=== PATIENT | female | born 1945 | race Caucasian/White ===

== ENCOUNTER → 2019-09-30 | Outpatient (CLI) | payer MEDICARE, OTHER ==
--- NOTE | 2019-09-30 15:47 | Diagnostic Imaging Report ---
PROCEDURE: CT abdomen and pelvis without contrast. TECHNIQUE: Multiple contiguous axial images were obtained through the abdomen and pelvis without the use of intravenous contrast. Auto Exposure Controls were utilized during the CT exam to meet ALARA standards for radiation dose reduction. INDICATION: Rectal problems and diarrhea. COMPARISON: No prior studies are available for comparison. FINDINGS: Lung bases are clear. Tiny low density in the dome of the right lobe of the liver is noted, too small to characterize. No other liver lesions are seen. The gallbladder is unremarkable. There is no biliary ductal dilatation. The pancreas and spleen are unremarkable. No adrenal mass is identified. No definite renal calculi or hydronephrosis are seen. Aorta is nonaneurysmal. A large amount of stool throughout the colon is noted. Small bowel loops are normal in caliber. There is some generalized circumferential wall thickening of the rectum. There is no free fluid or fluid collection. No abdominal or pelvic lymphadenopathy is seen. IMPRESSION: 1. Circumferential thickening of the rectum. Underlying neoplasm cannot be entirely excluded. Correlation with endoscopy is recommended. There is moderate stool throughout the remainder of the colon. Dictated by: Dictated on workstation # [id number]
== END ==
LOC: RAD 12:40
PROVIDERS: ATTEND Family Medicine
DX: K62.89 Other specified diseases of anus and rectum (principal); K62.5 Hemorrhage of anus and rectum
CPT/HCPCS: 74176

== ENCOUNTER 2020-02-07 13:21 | Outpatient (RCR) | payer MEDICARE ==
[2019-11-29 08:39] LABS: BASOPHILS # (AUTO) 0.1 10^3/uL (0.0-0.1); BASOPHILS % (AUTO) 1 % (0-10); EOSINOPHILS # (AUTO) 0.1 10^3/uL (0.0-0.3); EOSINOPHILS % (AUTO) 2 % (0-10); HEMATOCRIT 33 % (35-52); HEMOGLOBIN 10.7 G/DL (11.5-16.0); LYMPHOCYTES # (AUTO) 1.1 X 10^3 (1.0-4.0); LYMPHOCYTES % (AUTO) 21 % (12-44); MEAN CORPUSCULAR HEMOGLOBIN 28 PG (25-34); MEAN CORPUSCULAR HGB CONC 32 G/DL (32-36); MEAN CORPUSCULAR VOLUME 86 FL (80-99); MEAN PLATELET VOLUME 8.6 FL (7.4-10.4); MONOCYTES # (AUTO) 0.8 X 10^3 (0.0-1.0); MONOCYTES % (AUTO) 16 % (0-12); NEUTROPHILS # (AUTO) 3.2 X 10^3 (1.8-7.8); NEUTROPHILS % (AUTO) 61 % (42-75); PLATELET COUNT 284 10^3/uL (130-400); RED CELL DISTRIBUTION WIDTH 14.7 % (10.0-14.5); WHITE BLOOD COUNT 5.3 10^3/uL (4.3-11.0)
[2019-11-29 08:57] LABS: BUN/CREATININE RATIO 14; CALCIUM 8.9 MG/DL (8.5-10.1); CARBON DIOXIDE 24 MMOL/L (21-32); CHLORIDE 106 MMOL/L (98-107); CREATININE SERUM 0.77 MG/DL (0.60-1.30); GFR ESTIMATED > 60; GLUCOSE 98 MG/DL (70-105); POTASSIUM 3.9 MMOL/L (3.6-5.0); SODIUM 140 MMOL/L (135-145)
[2019-12-13 09:41] LABS: BASOPHILS # (AUTO) 0.1 10^3/uL (0.0-0.1); BASOPHILS % (AUTO) 1 % (0-10); EOSINOPHILS # (AUTO) 0.1 10^3/uL (0.0-0.3); EOSINOPHILS % (AUTO) 3 % (0-10); HEMATOCRIT 33 % (35-52); HEMOGLOBIN 10.7 G/DL (11.5-16.0); LYMPHOCYTES # (AUTO) 1.4 X 10^3 (1.0-4.0); LYMPHOCYTES % (AUTO) 29 % (12-44); MEAN CORPUSCULAR HEMOGLOBIN 28 PG (25-34); MEAN CORPUSCULAR HGB CONC 33 G/DL (32-36); MEAN CORPUSCULAR VOLUME 86 FL (80-99); MEAN PLATELET VOLUME 8.5 FL (7.4-10.4); MONOCYTES # (AUTO) 0.8 X 10^3 (0.0-1.0); MONOCYTES % (AUTO) 17 % (0-12); NEUTROPHILS # (AUTO) 2.5 X 10^3 (1.8-7.8); NEUTROPHILS % (AUTO) 51 % (42-75); PLATELET COUNT 219 10^3/uL (130-400); RED CELL DISTRIBUTION WIDTH 15.9 % (10.0-14.5)
[2019-12-13 09:56] LABS: ALANINE AMINOTRANSFERASE 52 U/L (0-55); ALBUMIN 3.7 GM/DL (3.2-4.5); ALKALINE PHOSPHATASE 113 U/L (40-136); BILIRUBIN,TOTAL 0.4 MG/DL (0.1-1.0); BUN/CREATININE RATIO 17; CALCIUM 9.1 MG/DL (8.5-10.1); CARBON DIOXIDE 26 MMOL/L (21-32); CHLORIDE 108 MMOL/L (98-107); CREATININE SERUM 0.77 MG/DL (0.60-1.30); GFR ESTIMATED > 60; GLUCOSE 77 MG/DL (70-105); MAGNESIUM 2.2 MG/DL (1.6-2.4); POTASSIUM 3.9 MMOL/L (3.6-5.0); SODIUM 141 MMOL/L (135-145); TOTAL PROTEIN 6.5 GM/DL (6.4-8.2)
[2019-12-27 13:29] LABS: BASOPHILS % (AUTO) 1 % (0-10); EOSINOPHILS # (AUTO) 0.1 10^3/uL (0.0-0.3); EOSINOPHILS % (AUTO) 3 % (0-10); HEMATOCRIT 32 % (35-52); HEMOGLOBIN 10.6 G/DL (11.5-16.0); LYMPHOCYTES # (AUTO) 1.5 X 10^3 (1.0-4.0); LYMPHOCYTES % (AUTO) 30 % (12-44); MEAN CORPUSCULAR HEMOGLOBIN 28 PG (25-34); MEAN CORPUSCULAR HGB CONC 33 G/DL (32-36); MEAN CORPUSCULAR VOLUME 86 FL (80-99); MEAN PLATELET VOLUME 8.6 FL (7.4-10.4); MONOCYTES # (AUTO) 0.8 X 10^3 (0.0-1.0); MONOCYTES % (AUTO) 16 % (0-12); NEUTROPHILS # (AUTO) 2.6 X 10^3 (1.8-7.8); NEUTROPHILS % (AUTO) 50 % (42-75); PLATELET COUNT 187 10^3/uL (130-400); RED CELL DISTRIBUTION WIDTH 16.6 % (10.0-14.5); WHITE BLOOD COUNT 5.1 10^3/uL (4.3-11.0)
[2019-12-27 13:52] LABS: ALANINE AMINOTRANSFERASE 68 U/L (0-55); ALBUMIN 3.8 GM/DL (3.2-4.5); ALKALINE PHOSPHATASE 114 U/L (40-136); BILIRUBIN,TOTAL 0.4 MG/DL (0.1-1.0); BUN/CREATININE RATIO 14; CALCIUM 9.2 MG/DL (8.5-10.1); CARBON DIOXIDE 26 MMOL/L (21-32); CHLORIDE 106 MMOL/L (98-107); CREATININE SERUM 0.83 MG/DL (0.60-1.30); GFR ESTIMATED > 60; GLUCOSE 144 MG/DL (70-105); POTASSIUM 3.8 MMOL/L (3.6-5.0); SODIUM 140 MMOL/L (135-145); TOTAL PROTEIN 6.6 GM/DL (6.4-8.2)
[2020-01-10 13:06] LABS: BASOPHILS # (AUTO) 0.1 10^3/uL (0.0-0.1); BASOPHILS % (AUTO) 2 % (0-10); EOSINOPHILS # (AUTO) 0.1 10^3/uL (0.0-0.3); EOSINOPHILS % (AUTO) 3 % (0-10); HEMATOCRIT 31 % (35-52); HEMOGLOBIN 10.2 G/DL (11.5-16.0); LYMPHOCYTES # (AUTO) 1.2 X 10^3 (1.0-4.0); LYMPHOCYTES % (AUTO) 41 % (12-44); MEAN CORPUSCULAR HEMOGLOBIN 28 PG (25-34); MEAN CORPUSCULAR HGB CONC 33 G/DL (32-36); MEAN CORPUSCULAR VOLUME 86 FL (80-99); MEAN PLATELET VOLUME 9.4 FL (7.4-10.4); MONOCYTES # (AUTO) 0.6 X 10^3 (0.0-1.0); MONOCYTES % (AUTO) 22 % (0-12); NEUTROPHILS % (AUTO) 34 % (42-75); PLATELET COUNT 158 10^3/uL (130-400)
[2020-01-10 13:30] LABS: ALANINE AMINOTRANSFERASE 195 U/L (0-55); ALBUMIN 3.7 GM/DL (3.2-4.5); ALKALINE PHOSPHATASE 132 U/L (40-136); BILIRUBIN,TOTAL 0.7 MG/DL (0.1-1.0); BUN/CREATININE RATIO 17; CALCIUM 9.1 MG/DL (8.5-10.1); CARBON DIOXIDE 25 MMOL/L (21-32); CHLORIDE 108 MMOL/L (98-107); CREATININE SERUM 0.75 MG/DL (0.60-1.30); GFR ESTIMATED > 60; GLUCOSE 133 MG/DL (70-105); MAGNESIUM 1.8 MG/DL (1.6-2.4); POTASSIUM 3.7 MMOL/L (3.6-5.0); SODIUM 141 MMOL/L (135-145); TOTAL PROTEIN 6.3 GM/DL (6.4-8.2)
[2020-01-31 10:11] LABS: BASOPHILS % (AUTO) 1 % (0-10); EOSINOPHILS # (AUTO) 0.5 10^3/uL (0.0-0.3); EOSINOPHILS % (AUTO) 6 % (0-10); HEMATOCRIT 33 % (35-52); HEMOGLOBIN 10.9 G/DL (11.5-16.0); LYMPHOCYTES # (AUTO) 1.7 X 10^3 (1.0-4.0); LYMPHOCYTES % (AUTO) 24 % (12-44); MEAN CORPUSCULAR HEMOGLOBIN 29 PG (25-34); MEAN CORPUSCULAR HGB CONC 33 G/DL (32-36); MEAN CORPUSCULAR VOLUME 88 FL (80-99); MEAN PLATELET VOLUME 9.4 FL (7.4-10.4); MONOCYTES # (AUTO) 1.3 X 10^3 (0.0-1.0); MONOCYTES % (AUTO) 18 % (0-12); NEUTROPHILS # (AUTO) 3.6 X 10^3 (1.8-7.8); NEUTROPHILS % (AUTO) 51 % (42-75); PLATELET COUNT 224 10^3/uL (130-400); RED CELL DISTRIBUTION WIDTH 21.8 % (10.0-14.5); WHITE BLOOD COUNT 7.1 10^3/uL (4.3-11.0)
[2020-01-31 10:30] LABS: ALANINE AMINOTRANSFERASE 29 U/L (0-55); ALBUMIN 3.4 GM/DL (3.2-4.5); ALKALINE PHOSPHATASE 80 U/L (40-136); BUN/CREATININE RATIO 14; CALCIUM 8.7 MG/DL (8.5-10.1); CARBON DIOXIDE 22 MMOL/L (21-32); CHLORIDE 110 MMOL/L (98-107); CREATININE SERUM 0.63 MG/DL (0.60-1.30); GFR ESTIMATED > 60; GLUCOSE 94 MG/DL (70-105); MAGNESIUM 1.6 MG/DL (1.6-2.4); POTASSIUM 2.9 MMOL/L (3.6-5.0); SODIUM 142 MMOL/L (135-145); TOTAL PROTEIN 5.5 GM/DL (6.4-8.2)
[~2020-02-07] VITALS: Ht 160 cm; Wt 49.4 kg
[~2020-02-07 13:21] MED LIST: D5W 500 ML IV (CANCER CTR) 500 ML IV SCH; D5W IV SCH; FOSAPREPITANT (CANCER CENTER) 150 MG in NS (IVPB) CANCER CENTER ONLY 150 ML IV SCH; LEUCOVORIN CALCIUM 500 MG, LEUCOVORIN CALCIUM 100 MG in D5W 250 ML IVPB (CANCER CTR) 25... IV SCH; MAGNESIUM SULFATE IV NR; OXALIPLATIN 100 MG, OXALIPLATIN (GENERIC) 20 MG in D5W 250 ML IVPB (CANCER CTR) 250 ML IV SCH; OXALIPLATIN IV SCH; PALONOSETRON HCL 0.25 MG, DEXAMETHASONE INJECTION 10 MG in NS (IVPB) CANCER CENTER 50 ML IV SCH; POTASSIUM CHL IV NR; [UNRECOGNIZED DRUG - OTHER] IV NR
[2020-02-07 13:37] LABS: BASOPHILS % (AUTO) 1 % (0-10); EOSINOPHILS # (AUTO) 0.4 10^3/uL (0.0-0.3); EOSINOPHILS % (AUTO) 9 % (0-10); HEMATOCRIT 32 % (35-52); HEMOGLOBIN 10.5 G/DL (11.5-16.0); LYMPHOCYTES # (AUTO) 1.4 X 10^3 (1.0-4.0); LYMPHOCYTES % (AUTO) 35 % (12-44); MEAN CORPUSCULAR HEMOGLOBIN 29 PG (25-34); MEAN CORPUSCULAR HGB CONC 32 G/DL (32-36); MEAN CORPUSCULAR VOLUME 91 FL (80-99); MEAN PLATELET VOLUME 9.2 FL (7.4-10.4); MONOCYTES # (AUTO) 0.7 X 10^3 (0.0-1.0); MONOCYTES % (AUTO) 17 % (0-12); NEUTROPHILS # (AUTO) 1.5 X 10^3 (1.8-7.8); NEUTROPHILS % (AUTO) 38 % (42-75); PLATELET COUNT 192 10^3/uL (130-400); RED CELL DISTRIBUTION WIDTH 21.9 % (10.0-14.5)
[2020-02-07 13:54] LABS: ALANINE AMINOTRANSFERASE 30 U/L (0-55); ALBUMIN 3.4 GM/DL (3.2-4.5); ALKALINE PHOSPHATASE 86 U/L (40-136); BILIRUBIN,TOTAL 0.6 MG/DL (0.1-1.0); BUN/CREATININE RATIO 20; CALCIUM 8.6 MG/DL (8.5-10.1); CARBON DIOXIDE 27 MMOL/L (21-32); CHLORIDE 109 MMOL/L (98-107); CREATININE SERUM 0.61 MG/DL (0.60-1.30); GFR ESTIMATED > 60; GLUCOSE 138 MG/DL (70-105); POTASSIUM 3.8 MMOL/L (3.6-5.0); SODIUM 143 MMOL/L (135-145); TOTAL PROTEIN 5.5 GM/DL (6.4-8.2)
== END 2020-02-22 | disposition home or self-care (01) ==
LOC: ONC 13:21
PROVIDERS: ATTEND Internal Medicine Hematology & Oncology
DX: Z51.11 Encounter for antineoplastic chemotherapy (principal); C20 Malignant neoplasm of rectum; R91.8 Other nonspecific abnormal finding of lung field; K76.9 Liver disease, unspecified; Z93.3 Colostomy status; Z95.828 Presence of other vascular implants and grafts; Z98.890 Other specified postprocedural states
CPT/HCPCS: 36591; 80048; 80053; 83735; 85025; 96365; 96366; 96367; 96368; 96375; 96411; 96413; 99214

== ENCOUNTER 2020-04-25 09:27 | Outpatient (RCR) | payer MEDICARE ==
[2020-02-28 11:02] LABS: BASOPHILS % (AUTO) 1 % (0-10); EOSINOPHILS # (AUTO) 0.2 10^3/uL (0.0-0.3); EOSINOPHILS % (AUTO) 6 % (0-10); HEMATOCRIT 32 % (35-52); HEMOGLOBIN 10.2 G/DL (11.5-16.0); LYMPHOCYTES # (AUTO) 1.2 X 10^3 (1.0-4.0); LYMPHOCYTES % (AUTO) 31 % (12-44); MEAN CORPUSCULAR HEMOGLOBIN 31 PG (25-34); MEAN CORPUSCULAR HGB CONC 32 G/DL (32-36); MEAN CORPUSCULAR VOLUME 95 FL (80-99); MEAN PLATELET VOLUME 9.8 FL (7.4-10.4); MONOCYTES # (AUTO) 0.7 X 10^3 (0.0-1.0); MONOCYTES % (AUTO) 19 % (0-12); NEUTROPHILS # (AUTO) 1.6 X 10^3 (1.8-7.8); NEUTROPHILS % (AUTO) 43 % (42-75); PLATELET COUNT 163 10^3/uL (130-400); WHITE BLOOD COUNT 3.7 10^3/uL (4.3-11.0)
[2020-02-28 11:14] LABS: ALANINE AMINOTRANSFERASE 45 U/L (0-55); ALBUMIN 3.7 GM/DL (3.2-4.5); ALKALINE PHOSPHATASE 124 U/L (40-136); BILIRUBIN,TOTAL 0.8 MG/DL (0.1-1.0); BUN/CREATININE RATIO 18; CALCIUM 8.8 MG/DL (8.5-10.1); CARBON DIOXIDE 24 MMOL/L (21-32); CHLORIDE 108 MMOL/L (98-107); CREATININE SERUM 0.67 MG/DL (0.60-1.30); GFR ESTIMATED > 60; GLUCOSE 109 MG/DL (70-105); MAGNESIUM 1.7 MG/DL (1.6-2.4); POTASSIUM 3.6 MMOL/L (3.6-5.0); SODIUM 140 MMOL/L (135-145); TOTAL PROTEIN 5.9 GM/DL (6.4-8.2)
[2020-03-26 10:32] LABS: BASOPHILS % (AUTO) 1 % (0-10); EOSINOPHILS # (AUTO) 0.2 10^3/uL (0.0-0.3); EOSINOPHILS % (AUTO) 4 % (0-10); HEMATOCRIT 35 % (35-52); HEMOGLOBIN 11.6 G/DL (11.5-16.0); LYMPHOCYTES # (AUTO) 1.2 X 10^3 (1.0-4.0); LYMPHOCYTES % (AUTO) 26 % (12-44); MEAN CORPUSCULAR HEMOGLOBIN 32 PG (25-34); MEAN CORPUSCULAR HGB CONC 33 G/DL (32-36); MEAN CORPUSCULAR VOLUME 98 FL (80-99); MEAN PLATELET VOLUME 8.9 FL (7.4-10.4); MONOCYTES # (AUTO) 0.7 X 10^3 (0.0-1.0); MONOCYTES % (AUTO) 16 % (0-12); NEUTROPHILS # (AUTO) 2.4 X 10^3 (1.8-7.8); NEUTROPHILS % (AUTO) 53 % (42-75); PLATELET COUNT 209 10^3/uL (130-400); WHITE BLOOD COUNT 4.5 10^3/uL (4.3-11.0)
[2020-03-26 10:50] LABS: ALANINE AMINOTRANSFERASE 40 U/L (0-55); ALBUMIN 3.9 GM/DL (3.2-4.5); ALKALINE PHOSPHATASE 153 U/L (40-136); BILIRUBIN,TOTAL 0.7 MG/DL (0.1-1.0); BUN/CREATININE RATIO 17; CALCIUM 9.8 MG/DL (8.5-10.1); CARBON DIOXIDE 25 MMOL/L (21-32); CHLORIDE 106 MMOL/L (98-107); CREATININE SERUM 0.72 MG/DL (0.60-1.30); GFR ESTIMATED > 60; GLUCOSE 109 MG/DL (70-105); MAGNESIUM 2.1 MG/DL (1.6-2.4); POTASSIUM 3.7 MMOL/L (3.6-5.0); SODIUM 140 MMOL/L (135-145); TOTAL PROTEIN 6.3 GM/DL (6.4-8.2)
[2020-04-11 09:30] LABS: BASOPHILS % (AUTO) 1 % (0-10); EOSINOPHILS # (AUTO) 0.1 10^3/uL (0.0-0.3); EOSINOPHILS % (AUTO) 3 % (0-10); HEMATOCRIT 36 % (35-52); HEMOGLOBIN 11.8 G/DL (11.5-16.0); LYMPHOCYTES # (AUTO) 1.3 X 10^3 (1.0-4.0); LYMPHOCYTES % (AUTO) 26 % (12-44); MEAN CORPUSCULAR HEMOGLOBIN 32 PG (25-34); MEAN CORPUSCULAR HGB CONC 33 G/DL (32-36); MEAN CORPUSCULAR VOLUME 98 FL (80-99); MONOCYTES # (AUTO) 0.6 X 10^3 (0.0-1.0); MONOCYTES % (AUTO) 12 % (0-12); NEUTROPHILS # (AUTO) 2.8 X 10^3 (1.8-7.8); NEUTROPHILS % (AUTO) 58 % (42-75); PLATELET COUNT 202 10^3/uL (130-400); WHITE BLOOD COUNT 4.8 10^3/uL (4.3-11.0)
[2020-04-11 09:41] LABS: ALANINE AMINOTRANSFERASE 63 U/L (0-55); ALBUMIN 3.9 GM/DL (3.2-4.5); ALKALINE PHOSPHATASE 140 U/L (40-136); BILIRUBIN,TOTAL 0.6 MG/DL (0.1-1.0); BUN/CREATININE RATIO 15; CALCIUM 9.3 MG/DL (8.5-10.1); CARBON DIOXIDE 23 MMOL/L (21-32); CHLORIDE 110 MMOL/L (98-107); CREATININE SERUM 0.68 MG/DL (0.60-1.30); GFR ESTIMATED > 60; GLUCOSE 82 MG/DL (70-105); POTASSIUM 3.7 MMOL/L (3.6-5.0); SODIUM 142 MMOL/L (135-145); TOTAL PROTEIN 6.3 GM/DL (6.4-8.2)
[~2020-04-25 09:27] MED LIST changes: +ATROPINE INJ 0.4 MG/ML SDV (CANCER CENTER) IV SCH; +BEVACIZUMAB AWWB IV SCH; -D5W IV SCH; +IRINOTECAN HCL 200 MG, IRINOTECAN HCL 50 MG in D5W 250 ML IVPB (CANCER CTR) 250 ML IV SCH; -MAGNESIUM SULFATE IV NR; +NS IV 1000 ML (CANCER CTR) 1,000 ML ONE; +NS IV SCH; -OXALIPLATIN IV SCH; -PALONOSETRON HCL 0.25 MG, DEXAMETHASONE INJECTION 10 MG in NS (IVPB) CANCER CENTER 50 ML IV SCH; -POTASSIUM CHL IV NR; -[UNRECOGNIZED DRUG - OTHER] IV NR
[2020-04-25 09:43] LABS: BASOPHILS # (AUTO) 0.1 10^3/uL (0.0-0.1); BASOPHILS % (AUTO) 2 % (0-10); EOSINOPHILS # (AUTO) 0.1 10^3/uL (0.0-0.3); EOSINOPHILS % (AUTO) 2 % (0-10); HEMATOCRIT 36 % (35-52); HEMOGLOBIN 11.9 g/dL (11.5-16.0); LYMPHOCYTES # (AUTO) 1.4 10^3/uL (1.0-4.0); LYMPHOCYTES % (AUTO) 37 % (12-44); MEAN CORPUSCULAR HEMOGLOBIN 33 pg (25-34); MEAN CORPUSCULAR HGB CONC 33 g/dL (32-36); MEAN CORPUSCULAR VOLUME 98 fL (80-99); MEAN PLATELET VOLUME 8.4 fL (9.0-12.2); MONOCYTES # (AUTO) 0.5 10^3/uL (0.0-1.0); MONOCYTES % (AUTO) 14 % (0-12); NEUTROPHILS # (AUTO) 1.8 10^3/uL (1.8-7.8); NEUTROPHILS % (AUTO) 45 % (42-75); PLATELET COUNT 200 10^3/uL (130-400); WHITE BLOOD COUNT 3.8 10^3/uL (4.3-11.0)
[2020-04-25] MEDS ORDERED: NS IV 1000 ML (CANCER CTR) 1,000 ML ONE (10:09)
[2020-04-25 10:15] LABS: ALANINE AMINOTRANSFERASE 38 U/L (0-55); ALBUMIN 3.9 GM/DL (3.2-4.5); ALKALINE PHOSPHATASE 154 U/L (40-136); BILIRUBIN,TOTAL 0.5 MG/DL (0.1-1.0); BUN/CREATININE RATIO 18; CALCIUM 9.3 MG/DL (8.5-10.1); CARBON DIOXIDE 22 MMOL/L (21-32); CHLORIDE 106 MMOL/L (98-107); CREATININE SERUM 0.74 MG/DL (0.60-1.30); GFR ESTIMATED > 60; GLUCOSE 97 MG/DL (70-105); POTASSIUM 3.8 MMOL/L (3.6-5.0); SODIUM 139 MMOL/L (135-145); TOTAL PROTEIN 6.5 GM/DL (6.4-8.2)
== END 2020-04-27 10:40 | disposition home or self-care (01) ==
LOC: ONC 09:27
PROVIDERS: ATTEND Internal Medicine Hematology & Oncology
DX: Z51.11 Encounter for antineoplastic chemotherapy (principal); C20 Malignant neoplasm of rectum; K76.9 Liver disease, unspecified; N83.8 Other noninflammatory disorders of ovary, fallopian tube and broad ligament; R19.7 Diarrhea, unspecified; Z98.890 Other specified postprocedural states; Z93.3 Colostomy status; Z95.828 Presence of other vascular implants and grafts
CPT/HCPCS: 80053; 83735; 85025; 96367; 96375; 96413; G0463; 36591; 82378; 86304; 96368; 96411; 99213

== ENCOUNTER 2020-06-18 21:45 | Inpatient (IN) | payer MEDICARE ==
[~2020-06-18] VITALS: Ht 160 cm; Wt 46.8 kg
[2020-06-18] MEDS ORDERED: LACTATED RINGERS 1,000 ML IV ONE (22:27)
--- NOTE | 2020-06-18 22:37 | ED General ---
General Stated Complaint: FEVER / LOWER ABD CRAMPING / BACK PAIN Source of Information: Patient History of Present Illness Date Seen by Provider: Jun 18, 2020 Time Seen by Provider: 22:27 Initial Comments PT ARRIVES VIA POV FROM HOME C/O FEVER OF 103 TONIGHT C/O LOWER ABDOMINAL PAIN/CRAMPING--MOSTLY LLQ PAIN C/O LOWER BACK PAIN--MORE IN LEFT LOWER BACK AREA NO URINARY SYMPTOMS PT IS CURRENTLY BEING TREATED FOR COLON CANCER. LAST CHEMO WAS 12 DAYS AGO. HAS HAD A COLON RESECTION WITH COLOSTOMY TESTED + FOR COVID-19 2 WEEKS AGO. THEY HAVE BEEN QUARANTINING IN SEPARATE HOUSES FOR THE LAST 2 WEEKS. NO COUGH OR SHORTNESS OF BREATH NO LOSS OF TASTE OR SMELL NO SORE THROAT NO NAUSEA/VOMITING PCP: DR. JC ONCOLOGIST: DR. RAE. ALSO GOES TO ONCOLOGY Allergies and Home Medications Allergies Coded Allergies: No Known Drug Allergies (Unverified , 11/24/19) Patient Home Medication List Home Medication List Reviewed: Yes Review of Systems Review of Systems Constitutional: see HPI, fever Respiratory: no symptoms reported Cardiovascular: no symptoms reported Gastrointestinal: see HPI, abdominal pain; No nausea, No vomiting Genitourinary: no symptoms reported Musculoskeletal: see HPI, back pain Past Haoouzj-Czfclq-Qvndea Hx Past Med/Social Hx: Reviewed and Corrections made Patient Social History Alcohol Use: Denies Use Recreational Drug Use: No Smoking Status: Never a Smoker Recent Foreign Travel: No Contact w/Someone Who Travel: No Past Medical History Surgeries: Yes (PORT PLACEMENT; COLON RESECTION/COLOSTOMY) Abdominal, Bowel Surgery Respiratory: No Cardiac: No Neurological: No Reproductive Disorders: Yes (UTERINE PROLAPSE) CHANNELER History: Menopausal Genitourinary: No Gastrointestinal: Yes (COLON CANCER--S/P COLON RESECTION AND COLOSTOMY) Musculoskeletal: No Endocrine: No HEENT: No Cancer: Yes Colon Did You Recieve Any Treatments: Yes What Type of Treatment Did You: Chemotherapy, Surgical Intervention COLON RESECTION WITH COLOSTOMY RECEIVING CHEMO Physical Exam Vital Signs Vital Signs - First Documented 06/18/20 22:10 Temp 38.8 Pulse 89 Resp 18 B/P (MAP) 112/71 (85) Pulse Ox 98 O2 Delivery Room Air Capillary Refill : Height, Weight, BMI Height: '" Weight: lbs. oz. kg; BMI Method: General Appearance: No Apparent Distress, WD/WN, Thin (VERY THIN), Other (DOES NOT APPEAR ACUTELY ILL. NO DYSPNEA. NO COUGH. ) Neck: Normal Inspection Respiratory: No Accessory Muscle Use, No Respiratory Distress Cardiovascular: Regular Rate, Rhythm, No Edema, No JVD, No Murmur, Normal Peripheral Pulses Gastrointestinal: No Pulsatile Mass, Soft, Abnormal Bowel Sounds (DECREASED); No Distended, No Guarding; Tenderness (SUPRAPUBIC AND LLQ, AND LEFT FLANK TENDERNESS. COLOSTOMY ON LEFT) Back: CVA Tenderness (L) Extremity: Normal Inspection Neurologic/Psychiatric: Alert, Oriented x3, No Motor/Sensory Deficits, Normal Mood/Affect, director financial services II-XII Norm as Tested Skin: Normal Color, Warm/Dry Focused Exam Lactate Level 06/18/20 22:30: Lactic Acid Level 0.86 Lactic Acid Level Laboratory Tests Test 06/18/20 22:30 Lactic Acid Level 0.86 MMOL/L (0.50-2.00) Progress/Results/Core Measures Suspected Sepsis SIRS Temperature: Pulse: Respiratory Rate: Laboratory Tests 06/18/20 22:30: White Blood Count 1.4*L Blood Pressure / Mean: 06/18/20 22:30: Lactic Acid Level 0.86 Laboratory Tests 06/18/20 22:30: Creatinine 0.68, INR Comment 1.2, Platelet Count 176, Total Bilirubin 0.8 Results/Orders Lab Results Laboratory Tests Test 06/18/20 22:20 06/18/20 22:30 06/18/20 23:23 Range/Units Coronavirus 2019 (THERESA) Negative Negative White Blood Count 1.4 *L 4.3-11.0 10^3/uL Red Blood Count 2.80 L 3.80-5.11 10^6/uL Hemoglobin 9.1 L 11.5-16.0 g/dL Hematocrit 27 L 35-52 % Mean Corpuscular Volume 95 80-99 fL Mean Corpuscular Hemoglobin 33 25-34 pg Mean Corpuscular Hemoglobin Concent 34 32-36 g/dL Red Cell Distribution Width 14.7 H 10.0-14.5 % Platelet Count 176 130-400 10^3/uL Mean Platelet Volume 9.5 9.0-12.2 fL Immature Granulocyte % (Auto) 0 % Neutrophils (%) (Auto) 13 L 42-75 % Lymphocytes (%) (Auto) 42 12-44 % Monocytes (%) (Auto) 41 H 0-12 % Eosinophils (%) (Auto) 2 0-10 % Basophils (%) (Auto) 1 0-10 % Neutrophils # (Auto) 0.2 L 1.8-7.8 10^3/uL Lymphocytes # (Auto) 0.6 L 1.0-4.0 10^3/uL Monocytes # (Auto) 0.6 0.0-1.0 10^3/uL Eosinophils # (Auto) 0.0 0.0-0.3 10^3/uL Basophils # (Auto) 0.0 0.0-0.1 10^3/uL Immature Granulocyte # (Auto) 0.0 0.0-0.1 10^3/uL Neutrophils % (Manual) 20 % Lymphocytes % (Manual) 50 % Monocytes % (Manual) 25 % Eosinophils % (Manual) 5 % Polychromasia SLIGHT Hypochromasia SLIGHT Elliptocytes SLIGHT Erythrocyte Sedimentation Rate 34 H 0-30 MM/HR Prothrombin Time 15.2 H 12.2-14.7 SEC INR Comment 1.2 0.8-1.4 Activated Partial Thromboplast Time 37 H 24-35 SEC D-Dimer 12.88 H 0.00-0.49 UG/ML Sodium Level 136 135-145 MMOL/L Potassium Level 2.9 L 3.6-5.0 MMOL/L Chloride Level 104 98-107 MMOL/L Carbon Dioxide Level 22 21-32 MMOL/L Anion Gap 10 5-14 MMOL/L Blood Urea Nitrogen 10 7-18 MG/DL Creatinine 0.68 0.60-1.30 MG/DL Estimat Glomerular Filtration Rate > 60 BUN/Creatinine Ratio 15 Glucose Level 127 H 70-105 MG/DL Lactic Acid Level 0.86 0.50-2.00 MMOL/L Calcium Level 8.2 L 8.5-10.1 MG/DL Corrected Calcium 9.0 8.5-10.1 MG/DL Magnesium Level 1.4 L 1.6-2.4 MG/DL Total Bilirubin 0.8 0.1-1.0 MG/DL Aspartate Amino Transf (AST/SGOT) 26 5-34 U/L Alanine Aminotransferase (ALT/SGPT) 17 0-55 U/L Alkaline Phosphatase 99 40-136 U/L Lactate Dehydrogenase 241 H 125-220 U/L C-Reactive Protein High Sensitivity 3.09 H 0.00-0.50 MG/DL Total Protein 5.3 L 6.4-8.2 GM/DL Albumin 3.0 L 3.2-4.5 GM/DL Amylase Level 74 25-125 U/L Lipase 43 8-78 U/L Procalcitonin 0.09 <0.10 NG/ML Urine Color YELLOW Urine Clarity TURBID Urine pH 6.0 5-9 Urine Specific [place] 1.020 1.016-1.022 Urine Protein 2+ H NEGATIVE Urine Glucose (UA) NEGATIVE NEGATIVE Urine Ketones NEGATIVE NEGATIVE Urine Nitrite NEGATIVE NEGATIVE Urine Bilirubin NEGATIVE NEGATIVE Urine Urobilinogen 1.0 < = 1.0 MG/DL Urine Leukocyte Esterase 1+ H NEGATIVE Urine RBC (Auto) 3+ H NEGATIVE Urine RBC 25-50 H /HPF Urine WBC 0-2 /HPF Urine Squamous Epithelial Cells 2-5 /HPF Urine Crystals NONE /LPF Urine Bacteria MODERATE H /HPF Urine Casts NONE /LPF Urine Mucus NEGATIVE /LPF Urine Culture Indicated CULTURE PENDING Micro Results Microbiology 06/18/20 Influenza Types A,B Antigen (REVA) - Final, Complete My Orders Orders - JAMI GONZALEZ DO Ed Iv/Invasive Line Start (06/18/20 22:27) Monitor-Rhythm Ecg Trace Only (06/18/20 22:27) Chest 1 View, Ap/Pa Only (06/18/20 22:27) Amylase (06/18/20 22:27) Cbc With Automated Diff (06/18/20 22:27) Comprehensive Metabolic Panel (06/18/20 22:27) Lactic Acid Analyzer (06/18/20 22:27) Lipase (06/18/20 22:27) Magnesium (06/18/20 22:27) Protime With Inr (06/18/20 22:27) Partial Thromboplastin Time (06/18/20 22:27) Ua Culture If Indicated (06/18/20 22:27) Blood Culture (06/18/20 22:27) Influenza A And B Antigens (06/18/20 22:27) Ed Iv/Invasive Line Start (06/18/20 22:27) Lactated Ringers (Lr 1000 Ml Iv Solution (06/18/20 22:27) Fibrin Degradation Products (06/18/20 22:27) Procalcitonin (Pct) (06/18/20 22:27) Hs C Reactive Protein (06/18/20 22:27) Erythrocyte Sedimentation Rate (06/18/20:27) LDH (06/18/20:) Covid 19 Inhouse Test (06/18/20 22:27) Sputum Culture (06/18/20:) Urine Culture (06/18/20 22:27) Ed Iv/Invasive Line Start (06/18/20 22:27) Ed Iv/Invasive Line Start (06/18/20 22:27) Vital Signs Adult Sepsis Patie Q15M (06/18/20 22:27) O2 (06/18/20 22:27) Remove Rings In Anticipation O (06/18/20:) Acetaminophen Tablet (Tylenol Tablet) (06/18/20 23:00) Ibuprofen Tablet (Motrin Tablet) (06/18/20 23:00) Ibuprofen Tablet (Motrin Tablet) (06/18/20 22:47) Acetaminophen Tablet (Tylenol Tablet) (06/18/20 22:47) Manual Differential (06/18/20 22:30) Coronavirus Sars-Cov-2 So 2018 (06/18/20 23:15) Ct Abd/Pelvis Wo(Kidney Stone) (06/19/20 00:17) Piperacillin Sodium/Tazobactam (Zosyn Vi (06/19/20 01:15) Vancomycin Injection (Vancomycin Injecti (06/19/20 01:15) Medications Given in ED Current Medications Medications Dose Ordered Sig/Kylah Route Start Time Stop Time Status Last Admin Dose Admin Acetaminophen 1,000 mg ONCE ONCE PO 06/18/20 23:00 06/18/20 23:01 DC 06/18/20 22:51 1,000 MG Ibuprofen 800 mg ONCE ONCE PO 06/18/20 23:00 06/18/20 23:01 DC 06/18/20 22:51 800 MG Lactated Ringer's 1,000 ml @ 0 mls/hr Q0M ONCE IV 06/18/20 22:27 06/18/20 22:30 DC 06/18/20 22:51 0 MLS/HR Vital Signs/I&O 06/18/20 22:10 Temp 38.8 Pulse 89 Resp 18 B/P (MAP) 112/71 (85) Pulse Ox 98 O2 Delivery Room Air Capillary Refill : Progress Note : Progress Note PLACED IN ISOLATION ROOM PPE WORN AT ALL TIMES COVID-19 TESTING PERFORMED PT ADVISED OF NEED FOR QUARANTINE NO DETERIORATION IN PT'S CONDITION DURING ER STAY PT DECLINES ANY PAIN MEDICATIONS DURING ER STAY GIVEN TYLENOL AND MOTRIN FOR FEVER Diagnostic Imaging Comments CXR--NO ACUTE PROCESS, PENDING RADIOLOGIST REVIEW CT ABDOMEN/PELVIS--DESCENDING COLOSTOMY, HAZY MESENTERIC OPACITY THROUGHOUT ABDOMINAL AND PELVIC MESENTERY. SOME INFLAMMATION IN LOW PELVIS WHICH COULD BE DIVERTICULITIS OR PROCTOCOLITIS. ADDITIONALLY THERE IS SOME SIGNIFICANT SOFT TISSUE FULLNESS IN ADNEXAL REGIONS OF THE PELVIS, POORLY EVALUATED WITHOUT CONTRAST. LARGE UTERINE PROLAPSE. PER [facility] VIA FAX AT [phone] Reviewed: Reviewed by Me Departure Communication (Admissions) 107--SPOKE WITH DR. CASPER, HOSPITALIST. ACCEPTS PT FOR ADMIT. ADVISES ZOSYN + VANCOMYCIN Impression Primary Impression: Person under investigation for COVID-19 Additional Impressions: Febrile neutropenia colon cancer on chemo DIVERTICULITIS/PROCTOCOLITIS Hypokalemia UTI (urinary tract infection) Hypomagnesemia Disposition: ADMITTED INPATIENT Condition: Stable Admissions Decision to Admit Reason: Admit from ER (General) Decision to Admit/Date: Jun 19, 2020 Time/Decision to Admit Time: 01:05 Departure-Patient Inst. Referrals: JAMI JC MD (PCP/Family) Primary Care Physician JAMI GONZALEZ DO Jun 18, 2020 22:37
[2020-06-18 22:47] LABS: BASOPHILS % (AUTO) 1 % (0-10); EOSINOPHILS % (AUTO) 2 % (0-10); HEMATOCRIT 27 % (35-52); HEMOGLOBIN 9.1 g/dL (11.5-16.0); LYMPHOCYTES # (AUTO) 0.6 10^3/uL (1.0-4.0); LYMPHOCYTES % (AUTO) 42 % (12-44); MEAN CORPUSCULAR HEMOGLOBIN 33 pg (25-34); MEAN CORPUSCULAR HGB CONC 34 g/dL (32-36); MEAN CORPUSCULAR VOLUME 95 fL (80-99); MEAN PLATELET VOLUME 9.5 fL (9.0-12.2); MONOCYTES # (AUTO) 0.6 10^3/uL (0.0-1.0); MONOCYTES % (AUTO) 41 % (0-12); NEUTROPHILS # (AUTO) 0.2 10^3/uL (1.8-7.8); NEUTROPHILS % (AUTO) 13 % (42-75); PLATELET COUNT 176 10^3/uL (130-400)
[2020-06-18] MEDS ORDERED: IBUPROFEN 800 MG (MOTRIN) TAB PO ONE ×2 (22:47→23:00)
[2020-06-18] MEDS ORDERED: ACETAMINOPHEN 500 MG TAB (TYLENOL) ONE (22:47)
[2020-06-18 22:56] LABS: WHITE BLOOD COUNT 1.4 10^3/uL (4.3-11.0)
[2020-06-18] MEDS ORDERED: ACETAMINOPHEN 500 MG TAB (TYLENOL) PO ONE (23:00)
--- NOTE | 2020-06-18 23:00 | NUR ---
Blood Culture #2 drawn from L wrist et sent to lab.
[2020-06-18 23:04] LABS: CHLORIDE 104 MMOL/L (98-107); POTASSIUM 2.9 MMOL/L (3.6-5.0); SODIUM 136 MMOL/L (135-145)
[2020-06-18 23:05] LABS: AMYLASE 74 U/L (25-125); CALCIUM 8.2 MG/DL (8.5-10.1)
[2020-06-18 23:06] LABS: GLUCOSE 127 MG/DL (70-105); TOTAL PROTEIN 5.3 GM/DL (6.4-8.2)
[2020-06-18 23:07] LABS: CARBON DIOXIDE 22 MMOL/L (21-32)
[2020-06-18 23:08] LABS: BILIRUBIN,TOTAL 0.8 MG/DL (0.1-1.0)
[2020-06-18 23:09] LABS: ALKALINE PHOSPHATASE 99 U/L (40-136)
[2020-06-18 23:10] LABS: CREATININE SERUM 0.68 MG/DL (0.60-1.30); GFR ESTIMATED > 60
[2020-06-18 23:11] LABS: BUN/CREATININE RATIO 15
[2020-06-18 23:12] LABS: ALANINE AMINOTRANSFERASE 17 U/L (0-55); MAGNESIUM 1.4 MG/DL (1.6-2.4)
[2020-06-18 23:13] LABS: LIPASE 43 U/L (8-78)
[2020-06-18 23:19] LABS: FIBRIN DEGRADATION PRODUCTS 12.88 UG/ML (0.00-0.49); INR 1.2 (0.8-1.4); PROTHROMBIN TIME PATIENT 15.2 SEC (12.2-14.7)
[2020-06-18 23:32] LABS: ERYTHROCYTE SEDIMENTATION RATE 34 MM/HR (0-30)
[2020-06-18 23:37] LABS: BILIRUBIN,URINE NEGATIVE (NEGATIVE); CLARITY,URINE TURBID; COLOR,URINE YELLOW; GLUCOSE, URINE (UA) NEGATIVE (NEGATIVE); KETONES,URINE NEGATIVE (NEGATIVE); LEUKOCYTE ESTERASE ,URINE 1+ (NEGATIVE); NITRITE,URINE NEGATIVE (NEGATIVE); PROTEIN,URINE 2+ (NEGATIVE)
[2020-06-19] VITALS (7 sets, daily range): BP systolic 95–190; BP diastolic 51–65
[2020-06-19 00:06] LABS: EOSINOPHILS % (MANUAL) 5 %; HYPOCHROMASIA SLIGHT; LYMPHOCYTES % (MANUAL) 50 %; MONOCYTES % (MANUAL) 25 %; NEUTROPHILS % (MANUAL) 20 %
[2020-06-19 00:07] LABS: ELLIPT/OVALOCYTES SLIGHT; POLYCHROMASIA SLIGHT
[2020-06-19 00:15] LABS: BACTERIA,URINE MODERATE /HPF; RBC,URINE 25-50 /HPF; WBC,URINE 0-2 /HPF
[2020-06-19] MEDS ORDERED: VANCOMYCIN INJECTION 1,000 MG in NS (IVPB) 250 ML IV ONE ×2 (01:15→03:00)
[2020-06-19] MEDS ORDERED: PIPERACILLIN SODIUM/TAZOBACTAM 4.5 GM in NS (IVPB) 100 ML IV ONE (01:15)
--- NOTE | 2020-06-19 02:05 | NUR ---
JACOB CISSE admitted to room 401-1, with an admitting diagnosis of Neutropenic Fever; COVID PUI; Diverticulitis/Proctocolitis; UTI; Colon Cancer on Chemo, on 06/19/20 from ED via wheelchair, accompanied by staff.JACOB CISSE introduced to surroundings, call light, bed controls, phone, TV, temperature control, lights, meal times, smoking policy, visitor policy, side rail policy, bathrooms and showers. Patient Rights given to patient in the handbook. JACOB CISSE verbalizes understanding that [facility] is not responsible for the loss or damage to any personal effects or valuables that are kept in the patients posession during their hospitalization. JACOB CISSE verbalizes understanding of Interdisciplinary Patient Education. Patient and/or family were informed about the Rapid Response Team and its purpose.
[2020-06-19] MEDS ORDERED: ONDANSETRON 4 MG/2 ML (SDV) Z0FRAN IVP PRN (02:30)
[2020-06-19] MEDS ORDERED: ACETAMINOPHEN 500 MG TAB (TYLENOL) PO PRN (02:30)
[2020-06-19] MEDS ORDERED: IBUPROFEN 800 MG (MOTRIN) TAB PO PRN (02:30)
[2020-06-19] MEDS ORDERED: MAGNESIUM 1 GM/D5W 100 ML IVPB IV ONE (02:30)
[2020-06-19] MEDS ORDERED: fentaNYL INJECTION 100 MCG/2 ML AMP IVP PRN (02:30)
[2020-06-19] MEDS ORDERED: VANCOMYCIN INJECTION 1,000 MG in NS (IVPB) 250 ML IV SCH (03:00)
[2020-06-19] MEDS ORDERED: NS (IVPB) 250 ML ONE (03:01)
[2020-06-19] MEDS ORDERED: VANCOMYCIN 1000 MG/VIAL ONE (03:02)
[2020-06-19] MEDS: 1/2 NS IV SCH ×2 (04:33→11:26)
[2020-06-19] MEDS: KCL IV SCH ×2 (04:33→11:26)
[2020-06-19] MEDS: D5 IV SCH ×2 (04:33→11:26)
[2020-06-19 05:15] LABS: BASOPHILS % (AUTO) 1 % (0-10); EOSINOPHILS # (AUTO) 0.1 10^3/uL (0.0-0.3); EOSINOPHILS % (AUTO) 4 % (0-10); HEMATOCRIT 23 % (35-52); LYMPHOCYTES # (AUTO) 0.8 10^3/uL (1.0-4.0); LYMPHOCYTES % (AUTO) 58 % (12-44); MEAN CORPUSCULAR HEMOGLOBIN 36 pg (25-34); MEAN CORPUSCULAR HGB CONC 35 g/dL (32-36); MEAN CORPUSCULAR VOLUME 100 fL (80-99); MEAN PLATELET VOLUME 9.2 fL (9.0-12.2); MONOCYTES # (AUTO) 0.4 10^3/uL (0.0-1.0); MONOCYTES % (AUTO) 25 % (0-12); NEUTROPHILS # (AUTO) 0.2 10^3/uL (1.8-7.8); NEUTROPHILS % (AUTO) 12 % (42-75); PLATELET COUNT 138 10^3/uL (130-400)
[2020-06-19 05:21] LABS: ALBUMIN 2.5 GM/DL (3.2-4.5)
[2020-06-19 05:22] LABS: CHLORIDE 108 MMOL/L (98-107); POTASSIUM 2.7 MMOL/L (3.6-5.0); SODIUM 139 MMOL/L (135-145)
[2020-06-19 05:23] LABS: CALCIUM 7.6 MG/DL (8.5-10.1)
[2020-06-19 05:24] LABS: GLUCOSE 97 MG/DL (70-105); TOTAL PROTEIN 4.4 GM/DL (6.4-8.2)
[2020-06-19 05:25] LABS: CARBON DIOXIDE 22 MMOL/L (21-32)
--- NOTE | 2020-06-19 05:25 | Diagnostic Imaging Report ---
Indication: Shortness of breath and fever Portable chest 11:38 PM Right IJ Port-A-Cath tip projects over the SVC. Heart size and pulmonary vascularity are normal. Lungs are clear. There are no effusions or pneumothoraces. IMPRESSION: No acute abnormalities in the chest Dictated by: Dictated on workstation # [id number]
[2020-06-19 05:26] LABS: BILIRUBIN,TOTAL 0.9 MG/DL (0.1-1.0); WHITE BLOOD COUNT 1.4 10^3/uL (4.3-11.0)
[2020-06-19 05:27] LABS: ALKALINE PHOSPHATASE 86 U/L (40-136)
[2020-06-19 05:28] LABS: CREATININE SERUM 0.65 MG/DL (0.60-1.30); GFR ESTIMATED > 60
[2020-06-19 05:29] LABS: BUN/CREATININE RATIO 14
[2020-06-19 05:30] LABS: ALANINE AMINOTRANSFERASE 12 U/L (0-55); MAGNESIUM 1.8 MG/DL (1.6-2.4)
--- NOTE | 2020-06-19 06:28 | Diagnostic Imaging Report ---
PROCEDURE: CT urinary tract, rule out kidney stone. TECHNIQUE: Multiple contiguous axial images were obtained through the abdomen and pelvis without the use of intravenous contrast. Auto Exposure Controls were utilized during the CT exam to meet ALARA standards for radiation dose reduction. INDICATION: Left flank pain Lung bases are clear. Liver appears normal. Gallbladder is present. Pancreas is unremarkable. There are some calcified granulomas in the spleen. Adrenals are normal. Kidneys appear normal. Ureters are not dilated. There is a colostomy left lower quadrant. Urinary bladder appears normal. Small bowel is not dilated. Uterus is prolapsed. There is no intraperitoneal free air or free fluid. IMPRESSION: Unremarkable colostomy left lower quadrant. Prolapsed uterus. Kidneys and ureters are unremarkable. I agree with preliminary interpretation. Dictated by: Dictated on workstation # [id number]
--- NOTE | 2020-06-19 08:46 | Diagnostic Imaging Report ---
PROCEDURE: US Venous Lower Ext Alvaro. TECHNIQUE: Multiple Real-time grayscale images were obtained over the lower extremities in various projections, bilaterally. Additional duplex Doppler and color Doppler images were also obtained. INDICATION: Elevated d-dimer. Concern for DVT. COMPARISON: None. FINDINGS: The bilateral common femoral vein, femoral vein, deep femoral vein, and popliteal vein are normal in appearance. These vessels show normal compressibility, color flow, and Doppler augmentation. The visualized deep calf veins demonstrate no distinct intraluminal thrombus. IMPRESSION: No sonographic evidence of deep venous thrombosis in the bilateral lower extremities. Dictated by: Dictated on workstation # [id number]
[2020-06-19] MEDS: PIPERACILLIN/TAZO 4.5 GM/NS 100 ML IV SCH ×6 (09:40→23:57)
--- NOTE | 2020-06-19 11:09 | NUR ---
"RD ASSESSMENT PMHx: CA(colon); hx of colon resection w/colostomy PT INTERACTION: Note pt is currently in COVID isolation, per chart review. Note all diet information for nutrition assessment is per Tessa RN or per chart review. Note PO intake 50% x1meal, per chart review. Tessa states no issues with nausea, vomiting, constipation, or diarrhea that she is aware of. Note pt has colostomy, per chart review. Note no BM has been recorded, and pt not currently on bowel regimen per chart review. Note recent 6# wt loss x7mon, per chart review. ABNORMAL NUTRITION-RELATED LAB VALUES LOW: K 2.7; Ca 7.6; Pro 4.4; alb 2.5 HIGH: Cl 108; Est. kcal needs: 1321-5369 kcal | 30-35 kcal/kg Est. Pro needs: 47-56 g Pro | 1.0-1.2 g Pro/kg PES STATEMENT: Inadequate oral intake (NI-2.1) related to loss of appetite as evidenced by chart review, communication with RN, and PO intake 50% x1meal. INTERVENTION: Continue with current diet order of Clear Liquid diet. Would recommend diet advancement when medically able and as tolerated. Switch current supplementation order from Ensure Enlive (vary) with meals TID to Ensure Clear with meals TID, for increased kcal intake. Clear provides 250 kcal and 8 g Pro per serving. Will continue to follow and reassess as pt needs, intake, and status change. Slava Reyna, MS RD LD"
--- NOTE | 2020-06-19 13:28 | History & Physical-Hospitalist ---
History of Present Illness HPI/Chief Complaint Alpa Rubio is a 75-year-old female with colon cancer on chemotherapy who presented with fever. She says that her daughter came over and was concerned about her feeling warm. They checked her temperature and it was elevated 3 times. She knew that her white blood cell count was low because she recently received chemotherapy. She denies any chest pain or palpitations. She denies any shortness of breath or cough. She denies any abdominal pain. She denies any nausea or vomiting. She denies diarrhea. She denies headaches and neck stiffness. She had not been having any dysuria and told this morning. She re ports urinary frequency. Source: patient Exam Limitations: no limitations Date Seen 06/19/20 Time Seen by a Provider: 09:25 Attending Physician Kristy Almeida MD PCP Alisha Zarate MD Referring Physician Date of Admission Jun 19, 2020 at 01:05 Home Medications & Allergies Home Medications Reviewed patient Home Medication Reconciliation performed by pharmacy medication reconciliations hvac field service technician and/or nursing. Patients Allergies have been reviewed. Allergies Allergies Coded Allergies No Known Drug Allergies (Unverified11/24/19) Past Uzmbcce-Mzubqf-Gpwlmx Hx Past Med/Social Hx: Reviewed Nursing Past Med/Soc Hx Patient Social History Alcohol Use: Denies Use Recreational Drug Use: No Smoking Status: Never a Smoker 2nd Hand Smoke Exposure: No Recent Foreign Travel: No Contact w/other who traveled: No Recent Hopitalizations: No Recent Infectious Disease Expo: No Seasonal Allergies Seasonal Allergies: No Past Medical History Surgeries: Abdominal, Bowel Surgery Reproductive: Yes (UTERINE PROLAPSE) Menopausal Cancer: Colon Did You Recieve Any Treatments: Yes What Type of Treatment Did You: Chemotherapy, Surgical Intervention Cancer: COLON RESECTION WITH COLOSTOMY RECEIVING CHEMO Review of Systems Constitutional: fever EENTM: no symptoms reported Respiratory: no symptoms reported Cardiovascular: no symptoms reported Gastrointestinal: no symptoms reported Genitourinary: no symptoms reported Musculoskeletal: no symptoms reported Skin: no symptoms reported Psychiatric/Neurological: No Symptoms Reported Physical Exam Physical Exam Vital Signs Vital Signs - First Documented 06/18/20 22:10 Temp 38.8 Pulse 89 Resp 18 B/P (MAP) 112/71 (85) Pulse Ox 98 O2 Delivery Room Air Capillary Refill : Less Than 3 Seconds Height, Weight, BMI Height: '" Weight: lbs. oz. kg; 18.28 BMI Method: General Appearance: No Apparent Distress, Thin HEENT: PERRL/EOMI, Pharynx Normal Neck: Normal Inspection, Supple Respiratory: Lungs Clear, Normal Breath Sounds, No Respiratory Distress Cardiovascular: Regular Rate, Rhythm, No Edema, No Murmur Gastrointestinal: Normal Bowel Sounds, Non Tender, Soft Extremity: Normal Inspection, Non Tender, No Pedal Edema Neurologic/Psychiatric: Alert, Oriented x3, No Motor/Sensory Deficits, Normal Mood/Affect Skin: Normal Color, Warm/Dry Results Results/Procedures Labs Laboratory Tests 06/18/20 22:30 06/19/20 04:40 Patient resulted labs reviewed. Imaging: Reviewed Imaging Report Assessment/Plan Admission Diagnosis Febrile neutropenia Admission Status: Inpatient Order (span 2 midnights) Reason for Inpatient Admission: Febrile neutropenia requiring IV antibiotics Assessment and Plan Febrile neutropenia Pancytopenia Colon cancer Possible urinary tract infection Person under investigation for COVID-19 Febrile 38.8 on arrival ANC 280, stable this morning Procalcitonin 0.09 CT Abdomen unremarkable COVID THERESA negative COVID PCR pending CXR without evidence of pneumonia UA with moderate bacteria, no WBC, culture pending Blood cultures pending IV fluids Vanc and Zosyn Consult Oncology, appreciate assistance Elevated D-dimer D-dimer 12 Venous dopplers negative for DVT Saturating well on room air, no indication of PE Hypokalemia Hypomagnesemia Monitor and replace as needed DVT Prophylaxis: Lovenox Diagnosis/Problems Diagnosis/Problems (1) Febrile neutropenia Status: Acute (2) Pancytopenia due to chemotherapy Status: Acute (3) Colon cancer Status: Chronic (4) Hypomagnesemia Status: Acute (5) Hypokalemia Status: Acute (6) UTI (urinary tract infection) Status: Acute (7) Person under investigation for COVID-19 Status: Acute Clinical Quality Measures DVT/VTE Risk/Contraindication: Risk Factor Score Per Nursin RFS Level Per Nursing on Admit: 4+=Very High ANTONIO RODRIGUES MD Jun 19, 2020 13:27
[2020-06-19] MEDS ORDERED: KCL 20 MEQ TAB (K-DUR) PO NR (13:30)
[2020-06-19] MEDS: POTASSIUM CL 10MEQ/50ML IVPB 50 ML IV SCH ×4 (14:33→17:43)
[2020-06-19] MEDS: LACTATED RINGERS 1,000 ML IV SCH ×2 (14:33→23:49)
[2020-06-19] MEDS ORDERED: ENOXAPARIN 40 MG/0.4 ML (LOVENOX) SYR SC SCH (14:45)
[2020-06-19] MEDS ORDERED: ENOXAPARIN 30 MG/0.3 ML (LOVENOX) SYR SC SCH ×2 (15:00→21:00)
[2020-06-19] MEDS ORDERED: VANCOMYCIN 750 MG/NS 250 ML IVPB IV SCH ×2 (21:00)
[2020-06-19] MEDS ORDERED: dexAMETHasone 6 MG TAB (DECADRON) ONE (21:15)
[2020-06-19] MEDS: dexAMETHasone 6 MG TAB (DECADRON) PO SCH (21:21)
--- NOTE | 2020-06-19 21:38 | NUR ---
2014-Mandeep RN from infection control notified this rn that pt's covid sent out was positive 2034-this rn notified 2099-this rn informed pt that her covid screen came back positive pt requested that this rn notified her daughter Claribel Mujica inform her of anything she wants to know & about her labs-pt confirmed the contact number of the daughter [phone]-this rn called pt daughter Claribel Oliva-she confirmed name of pt & password-pt daughter was requesting lab updates including covid + result, vitals, & was wanting to know if pt will be getting a medication to increase her WBC, daughter states she was to have this last week but the cancer center would not see her r/t pt having covid at that time.
[2020-06-20 00:01] VITALS: BP 129/71
[2020-06-20 03:21] VITALS: BP 155/70
[2020-06-20] MEDS ORDERED: ENOXAPARIN 60 MG/0.6 ML (LOVENOX) SYR SC SCH (03:30)
[2020-06-20] MEDS: LACTATED RINGERS 1,000 ML IV SCH ×2 (04:23→16:02)
[2020-06-20] MEDS: dexAMETHasone 6 MG TAB (DECADRON) PO SCH (06:21)
[2020-06-20 06:51] LABS: BASOPHILS % (AUTO) 0 % (0-10); EOSINOPHILS % (AUTO) 1 % (0-10); HEMATOCRIT 26 % (35-52); HEMOGLOBIN 9.8 g/dL (11.5-16.0); LYMPHOCYTES # (AUTO) 0.6 10^3/uL (1.0-4.0); LYMPHOCYTES % (AUTO) 48 % (12-44); MEAN CORPUSCULAR HEMOGLOBIN 38 pg (25-34); MEAN CORPUSCULAR HGB CONC 37 g/dL (32-36); MEAN CORPUSCULAR VOLUME 101 fL (80-99); MEAN PLATELET VOLUME 9.3 fL (9.0-12.2); MONOCYTES # (AUTO) 0.2 10^3/uL (0.0-1.0); MONOCYTES % (AUTO) 19 % (0-12); NEUTROPHILS # (AUTO) 0.4 10^3/uL (1.8-7.8); NEUTROPHILS % (AUTO) 30 % (42-75); PLATELET COUNT 228 10^3/uL (130-400)
[2020-06-20 06:58] LABS: WHITE BLOOD COUNT 1.3 10^3/uL (4.3-11.0)
[2020-06-20] MEDS ORDERED: dexAMETHasone 6 MG TAB (DECADRON) PO SCH (07:00)
[2020-06-20 07:02] LABS: CHLORIDE 110 MMOL/L (98-107); POTASSIUM 4.7 MMOL/L (3.6-5.0); SODIUM 139 MMOL/L (135-145)
[2020-06-20 07:03] LABS: CALCIUM 8.3 MG/DL (8.5-10.1); GLUCOSE 133 MG/DL (70-105)
[2020-06-20 07:05] LABS: CARBON DIOXIDE 21 MMOL/L (21-32)
[2020-06-20 07:07] LABS: CREATININE SERUM 0.78 MG/DL (0.60-1.30); GFR ESTIMATED > 60
[2020-06-20 07:08] LABS: BUN/CREATININE RATIO 9
[2020-06-20 07:09] LABS: MAGNESIUM 1.7 MG/DL (1.6-2.4)
[2020-06-20 08:00] VITALS: BP 117/76
[2020-06-20] MEDS: PIPERACILLIN/TAZO 4.5 GM/NS 100 ML IV SCH ×4 (10:19→16:01)
[2020-06-20] MEDS ORDERED: TBO-FILGRASTIM 480 MCG/0.8 ML (GRANIX) SQ NR (12:00)
[2020-06-20 12:30] VITALS: BP 122/75
--- NOTE | 2020-06-20 13:01 | Progress Note - Hospitalist ---
Subjective HPI/CC On Admission Date Seen by Provider: Jun 20, 2020 Time Seen by Provider: 10:40 Alpa Rubio is a 75-year-old female with colon cancer on chemotherapy who presented with fever. She says that her daughter came over and was concerned about her feeling warm. They checked her temperature and it was elevated 3 times. She knew that her white blood cell count was low because she recently received chemotherapy. She denies any chest pain or palpitations. She denies any shortness of breath or cough. She denies any abdominal pain. She denies any nausea or vomiting. She denies diarrhea. She denies headaches and neck stiffness. She had not been having any dysuria and told this morning. She reports urinary frequency. Subjective/Events-last exam she has not had any more fevers. She is still feeling weak. She denies any shortness of breath. We talked on the phone with her daughter, Claribel Oliva, and all questions were answered. Focused Exam Lactate Level 06/18/20 22:30: Lactic Acid Level 0.86 Objective Exam Vital Signs Vital Signs Date Time Temp Pulse Resp B/P (MAP) Pulse Ox O2 Delivery O2 Flow Rate FiO2 06/20/20 08:00 35.0 95 18 117/76 (90) 98 Room Air Capillary Refill : Less Than 3 SecondsLess Than 3 Seconds General Appearance: No Apparent Distress, Thin Respiratory: Lungs Clear, Normal Breath Sounds, No Respiratory Distress Cardiovascular: Regular Rate, Rhythm, No Edema, No Murmur Gastrointestinal: Normal Bowel Sounds, Non Tender, Soft Extremity: Normal Inspection, Non Tender, No Pedal Edema Neurologic/Psychiatric: Alert, Oriented x3, No Motor/Sensory Deficits, Normal Mood/Affect Skin: Normal Color, Warm/Dry Results/Procedures Lab Laboratory Tests 06/20/20 06:25 Patient resulted labs reviewed. Imaging: Reviewed Imaging Report Assessment/Plan Assessment and Plan Assess & Plan/Chief Complaint COVID-19 COVID PCR positive Not requring supplemental oxygen Convalescent plasma discussed with patient and daughter, EUA/risks/benefits discussed, agrees to use Febrile neutropenia Pancytopenia Colon cancer Possible urinary tract infection Possibly due to COVID Afebrile for >24 hours ANC 520, improving CXR without evidence of pneumonia UA with moderate bacteria, no WBC, culture pending Blood cultures with no growth to date Stop Vancomycin Continue Zosyn Begin Granix, continue until WBC >10 Elevated D-dimer At high risk for venous thromboembolism D-dimer 12 Venous dopplers negative for DVT Saturating well on room air, no indication of PE Begin Eliquis DVT Prophylaxis: already receiving therapeutic anticoagulation Hypokalemia, resolved Hypomagnesemia, resolved Diagnosis/Problems Diagnosis/Problems (1) COVID-19 Status: Acute (2) Febrile neutropenia Status: Acute (3) Pancytopenia due to chemotherapy Status: Acute (4) Colon cancer Status: Chronic (5) Hypomagnesemia Status: Acute (6) Hypokalemia Status: Acute (7) UTI (urinary tract infection) Status: Acute (8) At high risk for venous thromboembolism Status: Acute Clinical Quality Measures DVT/VTE Risk/Contraindication: Risk Factor Score Per Nursin RFS Level Per Nursing on Admit: 4+=Very High ANTONIO RODRIGUES MD Jun 20, 2020 13:01
[2020-06-20] MEDS ORDERED: TROUGH ORDER-PHARMACY XX NR (14:00)
[2020-06-20] MEDS ORDERED: CHOL10002 PO (15:00)
[2020-06-20] MEDS ORDERED: ASCO500C17 PO (15:00)
--- NOTE | 2020-06-20 15:03 | NUR ---
I WAS UNABLE TO SPEAK WITH THE PT (I CALLED HER ROOM PHONE MULTIPLE TIMES) THEREFORE I REACHED OUT TO HER DAUGHTER YAEL TO COMPLETE THE MED REC ACCORDING TO YAEL THE ONLY MED SHE TAKES AT HOME ARE VIT D AND VIT C
[2020-06-20 16:00] VITALS: BP 135/79
--- NOTE | 2020-06-20 17:29 | NUR ---
SHARRI/TIMI discharge planning. Plan: Patient may discharge home tomorrow 06/11 with a new script for Eliquis. SHARRI/SS was informed by physician that patient will be on a new script of Eliquis. The patient has Medicare; therefore, she qualifies for the 30-day-free card. The patient does not qualify for the 10 dollar co-pay card due to not having commercial insurance. SHARRI/SS informed the nurse that this sw will put Eliquis card in the red discharge packet and placed in the room number slot for discharge. No further needs at this time.
[2020-06-20 20:00] VITALS: BP 137/84
[2020-06-20] MEDS ORDERED: NS IV 500 ML 500 ML IV ONE (22:00)
--- NOTE | 2020-06-20 22:03 | NUR ---
PT IS A&OX4. THIS RN DISCUSSED PROCEDURAL CONSENT WITH PT. PT AGREES TO HAVING THE CONVALESCENT PLASMA. PT STATES THAT THE DOCTOR ALREADY DISCUSSED THIS WITH HER TODAY. PT DENIES ANY QUESTIONS OR CONCERNS. PT READ & SIGNED CONSENT.
[2020-06-20] MEDS: APIXABAN 5 MG (ELIQUIS) TABLET PO SCH (22:06)
--- NOTE | 2020-06-20 22:55 | NUR ---
221-BLOOD BANK ID BAND NOT IN PLACE TO VERIFY FOR PLASMA INFUSION PLASMA RETURNED TO LAB BY MARILYNN HAZEL RN. AT [facility] 2221-LABS FOR PLASMA INFUSION/VERIFICATION WERE DRAWN AGAIN BY MARILYNN CUEVAS. [id number]- DR. RODRIGUES NOTIFIED THAT PLASMA HAS NOT BE GIVEN.
[2020-06-21] VITALS (11 sets, daily range): BP systolic 106–143; BP diastolic 60–79
[2020-06-21] MEDS: PIPERACILLIN/TAZO 4.5 GM/NS 100 ML IV SCH ×2 (02:41)
[2020-06-21] MEDS: LACTATED RINGERS 1,000 ML IV SCH ×2 (04:23→16:07)
[2020-06-21 06:55] LABS: BASOPHILS # (AUTO) 0.1 10^3/uL (0.0-0.1); BASOPHILS % (AUTO) 1 % (0-10); EOSINOPHILS # (AUTO) 0.1 10^3/uL (0.0-0.3); EOSINOPHILS % (AUTO) 1 % (0-10); HEMATOCRIT 27 % (35-52); LYMPHOCYTES # (AUTO) 1.5 10^3/uL (1.0-4.0); LYMPHOCYTES % (AUTO) 15 % (12-44); MEAN CORPUSCULAR HEMOGLOBIN 33 pg (25-34); MEAN CORPUSCULAR HGB CONC 34 g/dL (32-36); MEAN CORPUSCULAR VOLUME 98 fL (80-99); MEAN PLATELET VOLUME 9.1 fL (9.0-12.2); MONOCYTES # (AUTO) 1.4 10^3/uL (0.0-1.0); MONOCYTES % (AUTO) 13 % (0-12); NEUTROPHILS # (AUTO) 7.1 10^3/uL (1.8-7.8); NEUTROPHILS % (AUTO) 67 % (42-75); PLATELET COUNT 246 10^3/uL (130-400); WHITE BLOOD COUNT 10.6 10^3/uL (4.3-11.0)
[2020-06-21 07:04] LABS: POTASSIUM 3.9 MMOL/L (3.6-5.0)
[2020-06-21 07:05] LABS: CALCIUM 8.3 MG/DL (8.5-10.1)
[2020-06-21 07:10] LABS: CREATININE SERUM 1.07 MG/DL (0.60-1.30)
[2020-06-21] MEDS: APIXABAN 5 MG (ELIQUIS) TABLET PO SCH ×2 (08:16→21:20)
[2020-06-21] MEDS ORDERED: TBO-FILGRASTIM 480 MCG/0.8 ML (GRANIX) SQ SCH (09:00)
[2020-06-21] MEDS ORDERED: LEVOFLOXACIN 750 MG TAB (LEVAQUIN) PO SCH (11:00)
--- NOTE | 2020-06-21 11:56 | Progress Note - Hospitalist ---
Subjective HPI/CC On Admission Date Seen by Provider: Jun 21, 2020 Time Seen by Provider: 11:20 Alpa Rubio is a 75-year-old female with colon cancer on chemotherapy who presented with fever. She says that her daughter came over and was concerned about her feeling warm. They checked her temperature and it was elevated 3 times. She knew that her white blood cell count was low because she recently received chemotherapy. She denies any chest pain or palpitations. She denies any shortness of breath or cough. She denies any abdominal pain. She denies any nausea or vomiting. She denies diarrhea. She denies headaches and neck stiffness. She had not been having any dysuria and told this morning. She reports urinary frequency. Subjective/Events-last exam she is feeling a little better today. She had a headache this morning but that is resolved. She had some abdominal cramping yesterday but that is also resolved. She denies any shortness of breath or cough. She has not had any fevers. She would like her diet to be advanced. Focused Exam Lactate Level 06/18/20 22:30: Lactic Acid Level 0.86 Objective Exam Vital Signs Vital Signs Date Time Temp Pulse Resp B/P (MAP) Pulse Ox O2 Delivery O2 Flow Rate FiO2 06/21/20 08:00 Room Air 06/21/20 08:00 35.6 72 20 106/60 (75) 94 Capillary Refill : Less Than 3 SecondsLess Than 3 Seconds General Appearance: No Apparent Distress, Thin Respiratory: Lungs Clear, Normal Breath Sounds, No Respiratory Distress Cardiovascular: Regular Rate, Rhythm, No Edema, No Murmur Gastrointestinal: Normal Bowel Sounds, Non Tender, Soft Extremity: Normal Inspection, Non Tender, No Pedal Edema Neurologic/Psychiatric: Alert, Oriented x3, No Motor/Sensory Deficits, Normal Mood/Affect Skin: Normal Color, Warm/Dry Results/Procedures Lab Laboratory Tests 06/21/20 06:46 Patient resulted labs reviewed. Imaging: Reviewed Imaging Report Assessment/Plan Assessment and Plan Assess & Plan/Chief Complaint COVID-19 COVID PCR positive Not requring supplemental oxygen s/p convalescent plasma Decadron and Remdesivir not indicated Febrile neutropenia Pancytopenia Colon cancer Possibly due to COVID Afebrile for >48 hours s/p Granix single dose WBC improved to 10 Blood cultures with no growth to date Urine culture appeared to be contaminated Stop Zosyn Transition to oral Levaquin Elevated D-dimer At high risk for venous thromboembolism D-dimer 12 Venous dopplers negative for DVT Saturating well on room air, no indication of PE Continue Eliquis DVT Prophylaxis: already receiving therapeutic anticoagulation Hypokalemia, resolved Hypomagnesemia, resolved Diagnosis/Problems Diagnosis/Problems (1) COVID-19 Status: Acute (2) Febrile neutropenia Status: Acute (3) Pancytopenia due to chemotherapy Status: Acute (4) Colon cancer Status: Chronic (5) Hypomagnesemia Status: Acute (6) Hypokalemia Status: Acute (7) UTI (urinary tract infection) Status: Acute (8) At high risk for venous thromboembolism Status: Acute Clinical Quality Measures DVT/VTE Risk/Contraindication: Risk Factor Score Per Nursin RFS Level Per Nursing on Admit: 4+=Very High ANTONIO RODRIGUES MD Jun 21, 2020 11:56
[2020-06-22 00:04] VITALS: BP 135/77
[2020-06-22] MEDS: LACTATED RINGERS 1,000 ML IV SCH (02:10)
[2020-06-22 04:00] VITALS: BP 140/76
[2020-06-22 05:16] VITALS: BP 140/76
[2020-06-22 06:11] LABS: BASOPHILS % (AUTO) 0 % (0-10); EOSINOPHILS # (AUTO) 0.1 10^3/uL (0.0-0.3); EOSINOPHILS % (AUTO) 0 % (0-10); HEMATOCRIT 28 % (35-52); HEMOGLOBIN 10.3 g/dL (11.5-16.0); LYMPHOCYTES # (AUTO) 2.6 10^3/uL (1.0-4.0); LYMPHOCYTES % (AUTO) 10 % (12-44); MEAN CORPUSCULAR HEMOGLOBIN 38 pg (25-34); MEAN CORPUSCULAR HGB CONC 38 g/dL (32-36); MEAN CORPUSCULAR VOLUME 101 fL (80-99); MEAN PLATELET VOLUME 8.9 fL (9.0-12.2); MONOCYTES % (AUTO) 8 % (0-12); NEUTROPHILS # (AUTO) 16.5 10^3/uL (1.8-7.8); NEUTROPHILS % (AUTO) 67 % (42-75); PLATELET COUNT 277 10^3/uL (130-400); WHITE BLOOD COUNT 24.8 10^3/uL (4.3-11.0)
[2020-06-22 06:16] LABS: CHLORIDE 106 MMOL/L (98-107); POTASSIUM 3.8 MMOL/L (3.6-5.0); SODIUM 137 MMOL/L (135-145)
[2020-06-22 06:17] LABS: CALCIUM 8.7 MG/DL (8.5-10.1)
[2020-06-22 06:18] LABS: GLUCOSE 84 MG/DL (70-105)
[2020-06-22 06:19] LABS: CARBON DIOXIDE 21 MMOL/L (21-32)
[2020-06-22 06:21] LABS: CREATININE SERUM 0.77 MG/DL (0.60-1.30); GFR ESTIMATED > 60
[2020-06-22 06:22] LABS: BUN/CREATININE RATIO 10
[2020-06-22 08:00] VITALS: BP 115/72
[2020-06-22] MEDS: APIXABAN 5 MG (ELIQUIS) TABLET PO SCH (09:06)
[2020-06-22] MEDS ORDERED: LEVO750T39 PO (10:33)
[2020-06-22] MEDS ORDERED: APIX5TAB PO (10:33)
[2020-06-22 12:25] VITALS: BP 115/72
--- NOTE | 2020-06-22 12:34 | NUR ---
JACOB CISSE demonstrates understanding of discharge instructions and accurately returns instructions upon questioning. Copy of Post-Discharge Instructions and Medication Discharge Instructions given to patient. JACOB CISSE is able to manage continuing needs after discharge. Patients belongings returned to patient. Skin dry and intact; no breakdown noted. Patient discharged from [facility] [place] on 06/22/2020 at 1225. JACOB CISSE left floor via wheelchair, accompanied by staff.
--- NOTE | 2020-06-22 13:22 | NUR ---
CM/SS received notification that patient did not leave with her Eliquis card. CM/SS contacted the patient's pharmacy, [facility], in [place] with Eliquis card numbers. The worker stated they will apply it and reimburse the patient since it had already been paid for. No further needs
--- NOTE | 2020-06-22 18:05 | Discharge Summary ---
Discharge Summary Hospital Course Was the Problem List Reviewed?: Yes Problems/Dx: (1) COVID-19 Status: Acute (2) Febrile neutropenia Status: Acute (3) Pancytopenia due to chemotherapy Status: Acute (4) Colon cancer Status: Chronic (5) Hypomagnesemia Status: Acute (6) Hypokalemia Status: Acute (7) At high risk for venous thromboembolism Status: Acute Hospital Course Date of Admission: Jun 19, 2020 at 01:05 Admission Diagnosis : Febrile neutropenia Family Physician/Provider: Alisha Jc MD Date of Discharge: 06/22/20 Discharge Diagnosis: COVID-19, febrile neutropenia Hospital Course: Carlie Rubio is a 75 year old female with colon cancer on chemotherapy who presented with fever and was admitted with febrile neutropenia. She was started on IV antibiotics. Her chest xray showed no evidence of pneumonia. Her UA appeared contaminated. Her blood cultures had no growth to date. Her rapid COVID test was negative. Her COVID PCR was positive. She did not have any shortness of breath or hypoxia. She did not require any supplemental oxygen. She was given convalescent plasma. She was given a short course of Levaquin to complete as an outpatient. Her case was discussed with her oncologist, Dr. Yousif, and it was recommend to give her a dose of Granix. Her WBC improved significantly. Her course was also complicated by signifanctly elevated d-dimer. A lower extremity doppler study was negative. Due to her high-risk status with COVID, colon cancer, and elevated d-dimer, she was started on Eliquis. She was given a one-month supply. She should follow up with her PCP and Dr. Yousif for a discussion regarding ongoing anticoagulation. She was discharged home in stable condition and was recommended to isolate at home until June 27. Labs and Pending Lab Test: Laboratory Tests 06/22/20 05:50: White Blood Count 24.8H, Red Blood Count 2.72L, Hemoglobin 10.3L, Hematocrit 28L , Mean Corpuscular Volume 101H, Mean Corpuscular Hemoglobin 38H, Mean Corpuscular Hemoglobin Concent 38H, Red Cell Distribution Width 17.8H, Platelet Count 277, Mean Platelet Volume 8.9L, Immature Granulocyte % (Auto) 15, Neutrophils (%) (Auto) 67, Lymphocytes (%) (Auto) 10L, Monocytes (%) (Auto) 8, Eosinophils (%) (Auto) 0, Basophils (%) (Auto) 0, Neutrophils # (Auto) 16.5H, Lymphocytes # (Auto) 2.6, Monocytes # (Auto) 2.0H, Eosinophils # (Auto) 0.1, Basophils # (Auto) 0.0, Immature Granulocyte # (Auto) 3.6H, Sodium Level 137, Potassium Level 3.8, Chloride Level 106, Carbon Dioxide Level 21, Anion Gap 10, Blood Urea Nitrogen 8, Creatinine 0.77, Estimat Glomerular Filtration Rate > 60, BUN/Creatinine Ratio 10, Glucose Level 84, Calcium Level 8.7 Microbiology 06/19/20 Blood Culture - Preliminary, Resulted No growth 06/18/20 Urine Culture - Final, Complete >=3 Gram Positive Isolates 06/18/20 Influenza Types A,B Antigen (REVA) - Final, Complete Home Meds Active Eliquis (Apixaban) 5 Mg Tablet 5 Mg PO BID 30 Days TAKE 2 TABLETS BID X 7 DAYS, THEN 1 TABLET BID Levofloxacin 750 Mg Tablet 750 Mg PO Q48H 4 Days Reported Vitamin C (Ascorbic Acid) 500 Mg Capsule 500 Mg PO DAILY Vitamin D3 (Cholecalciferol (Vitamin D3)) 25 Mcg Tablet 25 Mcg PO DAILY Assessment/Pt Instructions Follow up with PCP in a couple weeks. Call the cancer center next week to set up a follow up with Oncology. Discharge Planning: <30 minutes discharge planning Discharge Instructions Discharge Diet: No Restrictions Activity as Tolerated: Yes Discharge Physical Examination Vital Signs Vital Signs Date Time Temp Pulse Resp B/P (MAP) Pulse Ox O2 Delivery O2 Flow Rate FiO2 06/22/20 12:25 36.0 70 20 115/72 96 Room Air General Appearance: No Apparent Distress, Thin HEENT: PERRL/EOMI, Pharynx Normal Respiratory: Lungs Clear, Normal Breath Sounds, No Respiratory Distress Cardiovascular: Regular Rate, Rhythm, No Edema, No Murmur Gastrointestinal: Normal Bowel Sounds, Non Tender, Soft Extremity: Normal Inspection, Non Tender, No Pedal Edema Skin: Normal Color, Warm/Dry Neurologic/Psychiatric: Alert, Oriented x3, No Motor/Sensory Deficits, Normal Mood/Affect Allergies: Coded Allergies: No Known Drug Allergies (Unverified , 11/24/19) Copy Copies To 1: ALISHA JC MD Copies To 2: MARIANNE YOUSIF Discharge Summary Date of Admission Jun 19, 2020 at 01:05 Date of Discharge Jun 22, 2020 at 12:25 Discharge Date: Jun 22, 2020 Discharge Time: 12:25 Admission Diagnosis Febrile neutropenia Discharge Diagnosis COVID-19, Febrile neutropenia (1) COVID-19 Status: Acute (2) Febrile neutropenia Status: Acute (3) Pancytopenia due to chemotherapy Status: Acute (4) Colon cancer Status: Chronic (5) Hypomagnesemia Status: Acute (6) Hypokalemia Status: Acute (7) At high risk for venous thromboembolism Status: Acute Clinical Quality Measures DVT/VTE Risk/Contraindication: Risk Factor Score Per Nursin RFS Level Per Nursing on Admit: 4+=Very High ANTONIO RODRIGUES MD Jun 22, 2020 18:03
[2020-06-27] MEDS ORDERED: APIXABAN 5 MG (ELIQUIS) TABLET PO SCH (21:00)
== END 2020-06-22 12:25 | disposition home or self-care (01) | DRG 177 ==
LOC: EDUNIT# 21:45 → ER 21:46 → 4TH 06-19 01:05
PROVIDERS: ADMIT Family Medicine; ATTEND Family Medicine
PROC: XW13325 Transfusion of Convalescent Plasma (Nonautologous) into Peripheral Vein, Percutaneous Approach, New Technology Group 5 (ICD-10-PCS; principal; 2020-06-21)
DX: U07.1 COVID-19 (principal); D61.810 Antineoplastic chemotherapy induced pancytopenia; N39.0 Urinary tract infection, site not specified; C18.9 Malignant neoplasm of colon, unspecified; D70.9 Neutropenia, unspecified; E83.42 Hypomagnesemia; E87.6 Hypokalemia
CPT/HCPCS: 36415; 71045; 74176; 80048; 80053; 81000; 82150; 83605; 83615; 83690; 83735; 84145; 85007; 85025; 85027; 85379; 85610; 85652; 85730; 86141; 86900; 86901; 87040; 87088; 87635; 87804; 93041; 93970

== ENCOUNTER 2020-07-24 09:13 | Outpatient (RCR) | payer MEDICARE ==
[2020-05-09 10:14] LABS: BASOPHILS % (AUTO) 1 % (0-10); EOSINOPHILS # (AUTO) 0.1 10^3/uL (0.0-0.3); EOSINOPHILS % (AUTO) 3 % (0-10); HEMATOCRIT 36 % (35-52); HEMOGLOBIN 11.6 g/dL (11.5-16.0); LYMPHOCYTES # (AUTO) 1.5 10^3/uL (1.0-4.0); LYMPHOCYTES % (AUTO) 34 % (12-44); MEAN CORPUSCULAR HEMOGLOBIN 32 pg (25-34); MEAN CORPUSCULAR HGB CONC 33 g/dL (32-36); MEAN CORPUSCULAR VOLUME 99 fL (80-99); MONOCYTES # (AUTO) 0.6 10^3/uL (0.0-1.0); MONOCYTES % (AUTO) 13 % (0-12); NEUTROPHILS # (AUTO) 2.1 10^3/uL (1.8-7.8); NEUTROPHILS % (AUTO) 49 % (42-75); PLATELET COUNT 200 10^3/uL (130-400); WHITE BLOOD COUNT 4.3 10^3/uL (4.3-11.0)
[2020-05-09 10:21] LABS: ALANINE AMINOTRANSFERASE 60 U/L (0-55); ALBUMIN 3.8 GM/DL (3.2-4.5); ALKALINE PHOSPHATASE 144 U/L (40-136); BILIRUBIN,TOTAL 0.6 MG/DL (0.1-1.0); BUN/CREATININE RATIO 18; CALCIUM 9.1 MG/DL (8.5-10.1); CARBON DIOXIDE 24 MMOL/L (21-32); CHLORIDE 110 MMOL/L (98-107); CREATININE SERUM 0.68 MG/DL (0.60-1.30); GFR ESTIMATED > 60; GLUCOSE 91 MG/DL (70-105); MAGNESIUM 1.9 MG/DL (1.6-2.4); POTASSIUM 3.9 MMOL/L (3.6-5.0); SODIUM 142 MMOL/L (135-145); TOTAL PROTEIN 6.4 GM/DL (6.4-8.2)
[2020-05-23 10:02] LABS: BASOPHILS % (AUTO) 1 % (0-10); EOSINOPHILS # (AUTO) 0.1 10^3/uL (0.0-0.3); EOSINOPHILS % (AUTO) 2 % (0-10); HEMATOCRIT 35 % (35-52); HEMOGLOBIN 11.6 g/dL (11.5-16.0); LYMPHOCYTES # (AUTO) 1.3 10^3/uL (1.0-4.0); LYMPHOCYTES % (AUTO) 35 % (12-44); MEAN CORPUSCULAR HEMOGLOBIN 33 pg (25-34); MEAN CORPUSCULAR HGB CONC 33 g/dL (32-36); MEAN CORPUSCULAR VOLUME 98 fL (80-99); MEAN PLATELET VOLUME 8.9 fL (9.0-12.2); MONOCYTES # (AUTO) 0.5 10^3/uL (0.0-1.0); MONOCYTES % (AUTO) 14 % (0-12); NEUTROPHILS # (AUTO) 1.7 10^3/uL (1.8-7.8); NEUTROPHILS % (AUTO) 48 % (42-75); PLATELET COUNT 198 10^3/uL (130-400); WHITE BLOOD COUNT 3.5 10^3/uL (4.3-11.0)
[2020-05-23 10:23] LABS: ALANINE AMINOTRANSFERASE 41 U/L (0-55); ALBUMIN 3.9 GM/DL (3.2-4.5); ALKALINE PHOSPHATASE 146 U/L (40-136); BILIRUBIN,TOTAL 0.6 MG/DL (0.1-1.0); BUN/CREATININE RATIO 13; CALCIUM 9.7 MG/DL (8.5-10.1); CARBON DIOXIDE 24 MMOL/L (21-32); CHLORIDE 108 MMOL/L (98-107); CREATININE SERUM 0.77 MG/DL (0.60-1.30); GFR ESTIMATED > 60; GLUCOSE 129 MG/DL (70-105); MAGNESIUM 2.4 MG/DL (1.6-2.4); POTASSIUM 3.8 MMOL/L (3.6-5.0); SODIUM 142 MMOL/L (135-145); TOTAL PROTEIN 6.6 GM/DL (6.4-8.2)
[2020-06-06 09:06] LABS: BASOPHILS % (AUTO) 1 % (0-10); EOSINOPHILS # (AUTO) 0.1 10^3/uL (0.0-0.3); EOSINOPHILS % (AUTO) 2 % (0-10); HEMATOCRIT 33 % (35-52); HEMOGLOBIN 10.9 g/dL (11.5-16.0); LYMPHOCYTES # (AUTO) 0.9 10^3/uL (1.0-4.0); LYMPHOCYTES % (AUTO) 33 % (12-44); MEAN CORPUSCULAR HEMOGLOBIN 32 pg (25-34); MEAN CORPUSCULAR HGB CONC 33 g/dL (32-36); MEAN CORPUSCULAR VOLUME 97 fL (80-99); MEAN PLATELET VOLUME 8.5 fL (9.0-12.2); MONOCYTES # (AUTO) 0.5 10^3/uL (0.0-1.0); MONOCYTES % (AUTO) 18 % (0-12); NEUTROPHILS # (AUTO) 1.3 10^3/uL (1.8-7.8); NEUTROPHILS % (AUTO) 45 % (42-75); PLATELET COUNT 135 10^3/uL (130-400); WHITE BLOOD COUNT 2.8 10^3/uL (4.3-11.0)
[2020-06-06 09:28] LABS: ALANINE AMINOTRANSFERASE 42 U/L (0-55); ALBUMIN 3.6 GM/DL (3.2-4.5); ALKALINE PHOSPHATASE 150 U/L (40-136); BILIRUBIN,TOTAL 0.7 MG/DL (0.1-1.0); BUN/CREATININE RATIO 14; CALCIUM 8.9 MG/DL (8.5-10.1); CARBON DIOXIDE 22 MMOL/L (21-32); CHLORIDE 108 MMOL/L (98-107); CREATININE SERUM 0.79 MG/DL (0.60-1.30); GFR ESTIMATED > 60; GLUCOSE 114 MG/DL (70-105); MAGNESIUM 2.3 MG/DL (1.6-2.4); POTASSIUM 3.5 MMOL/L (3.6-5.0); SODIUM 140 MMOL/L (135-145); TOTAL PROTEIN 6.2 GM/DL (6.4-8.2)
[2020-07-05 10:34] LABS: BASOPHILS # (AUTO) 0.1 10^3/uL (0.0-0.1); BASOPHILS % (AUTO) 2 % (0-10); EOSINOPHILS # (AUTO) 0.1 10^3/uL (0.0-0.3); EOSINOPHILS % (AUTO) 1 % (0-10); HEMATOCRIT 21 % (35-52); HEMOGLOBIN 8.4 g/dL (11.5-16.0); LYMPHOCYTES # (AUTO) 0.9 10^3/uL (1.0-4.0); LYMPHOCYTES % (AUTO) 16 % (12-44); MEAN CORPUSCULAR HEMOGLOBIN 45 pg (25-34); MEAN CORPUSCULAR HGB CONC 41 g/dL (32-36); MEAN CORPUSCULAR VOLUME 111 fL (80-99); MEAN PLATELET VOLUME 8.6 fL (9.0-12.2); MONOCYTES # (AUTO) 0.8 10^3/uL (0.0-1.0); MONOCYTES % (AUTO) 13 % (0-12); NEUTROPHILS # (AUTO) 3.9 10^3/uL (1.8-7.8); NEUTROPHILS % (AUTO) 67 % (42-75); PLATELET COUNT 324 10^3/uL (130-400); WHITE BLOOD COUNT 5.8 10^3/uL (4.3-11.0)
[2020-07-05 10:59] LABS: ALANINE AMINOTRANSFERASE 12 U/L (0-55); ALBUMIN 3.1 GM/DL (3.2-4.5); ALKALINE PHOSPHATASE 94 U/L (40-136); BILIRUBIN,TOTAL 0.7 MG/DL (0.1-1.0); BUN/CREATININE RATIO 14; CARBON DIOXIDE 28 MMOL/L (21-32); CHLORIDE 107 MMOL/L (98-107); CREATININE SERUM 0.64 MG/DL (0.60-1.30); GFR ESTIMATED > 60; GLUCOSE 75 MG/DL (70-105); SODIUM 141 MMOL/L (135-145); TOTAL PROTEIN 6.2 GM/DL (6.4-8.2)
[~2020-07-24 09:13] MED LIST changes: +APIX5TAB PO; +ASCO500C17 PO; +CHOL10002 PO; -D5W 500 ML IV (CANCER CTR) 500 ML IV SCH; +FILGRASTIM 480 MCG/1.6 ML VIAL CANCER CENTER SQ SCH; +LEVO750T39 PO; +NS IV 1000 ML (CANCER CTR) 1,000 ML IV SCH; -OXALIPLATIN 100 MG, OXALIPLATIN (GENERIC) 20 MG in D5W 250 ML IVPB (CANCER CTR) 250 ML IV SCH
[2020-07-24 09:38] LABS: BASOPHILS # (AUTO) 0.1 10^3/uL (0.0-0.1); BASOPHILS % (AUTO) 2 % (0-10); EOSINOPHILS # (AUTO) 0.2 10^3/uL (0.0-0.3); EOSINOPHILS % (AUTO) 5 % (0-10); HEMATOCRIT 32 % (35-52); HEMOGLOBIN 9.9 g/dL (11.5-16.0); LYMPHOCYTES # (AUTO) 1.2 10^3/uL (1.0-4.0); LYMPHOCYTES % (AUTO) 26 % (12-44); MEAN CORPUSCULAR HEMOGLOBIN 33 pg (25-34); MEAN CORPUSCULAR HGB CONC 31 g/dL (32-36); MEAN CORPUSCULAR VOLUME 104 fL (80-99); MEAN PLATELET VOLUME 9.3 fL (9.0-12.2); MONOCYTES # (AUTO) 0.6 10^3/uL (0.0-1.0); MONOCYTES % (AUTO) 12 % (0-12); NEUTROPHILS # (AUTO) 2.5 10^3/uL (1.8-7.8); NEUTROPHILS % (AUTO) 55 % (42-75); PLATELET COUNT 273 10^3/uL (130-400); WHITE BLOOD COUNT 4.7 10^3/uL (4.3-11.0)
[2020-07-24 10:05] LABS: ALANINE AMINOTRANSFERASE 49 U/L (0-55); ALBUMIN 3.5 GM/DL (3.2-4.5); ALKALINE PHOSPHATASE 168 U/L (40-136); BILIRUBIN,TOTAL 0.4 MG/DL (0.1-1.0); BUN/CREATININE RATIO 17; CALCIUM 8.9 MG/DL (8.5-10.1); CARBON DIOXIDE 27 MMOL/L (21-32); CHLORIDE 109 MMOL/L (98-107); CREATININE SERUM 0.64 MG/DL (0.60-1.30); GFR ESTIMATED > 60; GLUCOSE 84 MG/DL (70-105); POTASSIUM 3.7 MMOL/L (3.6-5.0); SODIUM 139 MMOL/L (135-145); TOTAL PROTEIN 6.5 GM/DL (6.4-8.2)
== END 2020-07-30 12:48 | disposition home or self-care (01) ==
LOC: ONC 09:13
PROVIDERS: ATTEND Internal Medicine Hematology & Oncology
DX: Z51.11 Encounter for antineoplastic chemotherapy (principal); C20 Malignant neoplasm of rectum; C78.7 Secondary malignant neoplasm of liver and intrahepatic bile duct; C78.6 Secondary malignant neoplasm of retroperitoneum and peritoneum; N83.8 Other noninflammatory disorders of ovary, fallopian tube and broad ligament; Z98.890 Other specified postprocedural states; Z93.3 Colostomy status; Z95.828 Presence of other vascular implants and grafts; Z92.21 Personal history of antineoplastic chemotherapy
CPT/HCPCS: 80053; 82378; 83735; 85025; 96367; 96368; 96375; 96411; 96413; 96521; G0463; 36591; 99213

== ENCOUNTER → 2020-11-05 | Outpatient (RCR) | payer MEDICARE ==
[2020-08-07 09:21] LABS: BASOPHILS # (AUTO) 0.1 10^3/uL (0.0-0.1); BASOPHILS % (AUTO) 2 % (0-10); EOSINOPHILS # (AUTO) 0.3 10^3/uL (0.0-0.3); EOSINOPHILS % (AUTO) 6 % (0-10); HEMATOCRIT 36 % (35-52); HEMOGLOBIN 11.4 g/dL (11.5-16.0); LYMPHOCYTES # (AUTO) 1.2 10^3/uL (1.0-4.0); LYMPHOCYTES % (AUTO) 25 % (12-44); MEAN CORPUSCULAR HEMOGLOBIN 31 pg (25-34); MEAN CORPUSCULAR HGB CONC 32 g/dL (32-36); MEAN CORPUSCULAR VOLUME 99 fL (80-99); MEAN PLATELET VOLUME 9.3 fL (9.0-12.2); MONOCYTES # (AUTO) 0.6 10^3/uL (0.0-1.0); MONOCYTES % (AUTO) 13 % (0-12); NEUTROPHILS # (AUTO) 2.6 10^3/uL (1.8-7.8); NEUTROPHILS % (AUTO) 54 % (42-75); PLATELET COUNT 277 10^3/uL (130-400); WHITE BLOOD COUNT 4.8 10^3/uL (4.3-11.0)
[2020-08-07 09:38] LABS: ALANINE AMINOTRANSFERASE 36 U/L (0-55); ALBUMIN 3.9 GM/DL (3.2-4.5); ALKALINE PHOSPHATASE 140 U/L (40-136); BILIRUBIN,TOTAL 0.3 MG/DL (0.1-1.0); BUN/CREATININE RATIO 13; CALCIUM 9.3 MG/DL (8.5-10.1); CARBON DIOXIDE 24 MMOL/L (21-32); CHLORIDE 109 MMOL/L (98-107); CREATININE SERUM 0.69 MG/DL (0.60-1.30); GFR ESTIMATED > 60; GLUCOSE 82 MG/DL (70-105); POTASSIUM 3.8 MMOL/L (3.6-5.0); SODIUM 141 MMOL/L (135-145); TOTAL PROTEIN 7.1 GM/DL (6.4-8.2)
[2020-08-21 09:33] LABS: BASOPHILS # (AUTO) 0.1 10^3/uL (0.0-0.1); BASOPHILS % (AUTO) 1 % (0-10); EOSINOPHILS # (AUTO) 0.2 10^3/uL (0.0-0.3); EOSINOPHILS % (AUTO) 3 % (0-10); HEMATOCRIT 35 % (35-52); HEMOGLOBIN 11.4 g/dL (11.5-16.0); LYMPHOCYTES # (AUTO) 0.8 10^3/uL (1.0-4.0); LYMPHOCYTES % (AUTO) 16 % (12-44); MEAN CORPUSCULAR HEMOGLOBIN 31 pg (25-34); MEAN CORPUSCULAR HGB CONC 32 g/dL (32-36); MEAN CORPUSCULAR VOLUME 97 fL (80-99); MEAN PLATELET VOLUME 8.5 fL (9.0-12.2); MONOCYTES # (AUTO) 0.7 10^3/uL (0.0-1.0); MONOCYTES % (AUTO) 14 % (0-12); NEUTROPHILS # (AUTO) 3.5 10^3/uL (1.8-7.8); NEUTROPHILS % (AUTO) 66 % (42-75); PLATELET COUNT 267 10^3/uL (130-400); WHITE BLOOD COUNT 5.3 10^3/uL (4.3-11.0)
[2020-08-21 09:59] LABS: ALANINE AMINOTRANSFERASE 69 U/L (0-55); ALBUMIN 3.6 GM/DL (3.2-4.5); ALKALINE PHOSPHATASE 164 U/L (40-136); BILIRUBIN,TOTAL 0.4 MG/DL (0.1-1.0); BUN/CREATININE RATIO 14; CALCIUM 9.4 MG/DL (8.5-10.1); CARBON DIOXIDE 23 MMOL/L (21-32); CHLORIDE 108 MMOL/L (98-107); CREATININE SERUM 0.69 MG/DL (0.60-1.30); GFR ESTIMATED > 60; GLUCOSE 107 MG/DL (70-105); POTASSIUM 3.7 MMOL/L (3.6-5.0); SODIUM 141 MMOL/L (135-145); TOTAL PROTEIN 6.7 GM/DL (6.4-8.2)
[2020-09-04 12:58] LABS: BASOPHILS # (AUTO) 0.1 10^3/uL (0.0-0.1); BASOPHILS % (AUTO) 1 % (0-10); EOSINOPHILS # (AUTO) 0.3 10^3/uL (0.0-0.3); EOSINOPHILS % (AUTO) 5 % (0-10); HEMATOCRIT 36 % (35-52); HEMOGLOBIN 11.4 g/dL (11.5-16.0); LYMPHOCYTES # (AUTO) 1.1 10^3/uL (1.0-4.0); LYMPHOCYTES % (AUTO) 21 % (12-44); MEAN CORPUSCULAR HEMOGLOBIN 31 pg (25-34); MEAN CORPUSCULAR HGB CONC 32 g/dL (32-36); MEAN CORPUSCULAR VOLUME 96 fL (80-99); MEAN PLATELET VOLUME 9.2 fL (9.0-12.2); MONOCYTES # (AUTO) 0.7 10^3/uL (0.0-1.0); MONOCYTES % (AUTO) 14 % (0-12); NEUTROPHILS # (AUTO) 3.1 10^3/uL (1.8-7.8); NEUTROPHILS % (AUTO) 59 % (42-75); PLATELET COUNT 253 10^3/uL (130-400); WHITE BLOOD COUNT 5.3 10^3/uL (4.3-11.0)
[2020-09-04 13:19] LABS: ALANINE AMINOTRANSFERASE 67 U/L (0-55); ALBUMIN 3.6 GM/DL (3.2-4.5); ALKALINE PHOSPHATASE 168 U/L (40-136); BILIRUBIN,TOTAL 0.3 MG/DL (0.1-1.0); BUN/CREATININE RATIO 17; CALCIUM 9.2 MG/DL (8.5-10.1); CARBON DIOXIDE 24 MMOL/L (21-32); CHLORIDE 108 MMOL/L (98-107); CREATININE SERUM 0.65 MG/DL (0.60-1.30); GFR ESTIMATED > 60; GLUCOSE 85 MG/DL (70-105); MAGNESIUM 1.7 MG/DL (1.6-2.4); SODIUM 140 MMOL/L (135-145); TOTAL PROTEIN 6.6 GM/DL (6.4-8.2)
[2020-09-18 13:33] LABS: BASOPHILS # (AUTO) 0.1 10^3/uL (0.0-0.1); BASOPHILS % (AUTO) 1 % (0-10); EOSINOPHILS # (AUTO) 0.3 10^3/uL (0.0-0.3); EOSINOPHILS % (AUTO) 5 % (0-10); HEMATOCRIT 37 % (35-52); LYMPHOCYTES # (AUTO) 1.5 10^3/uL (1.0-4.0); LYMPHOCYTES % (AUTO) 24 % (12-44); MEAN CORPUSCULAR HEMOGLOBIN 31 pg (25-34); MEAN CORPUSCULAR HGB CONC 32 g/dL (32-36); MEAN CORPUSCULAR VOLUME 95 fL (80-99); MEAN PLATELET VOLUME 9.4 fL (9.0-12.2); MONOCYTES # (AUTO) 0.7 10^3/uL (0.0-1.0); MONOCYTES % (AUTO) 11 % (0-12); NEUTROPHILS # (AUTO) 3.8 10^3/uL (1.8-7.8); NEUTROPHILS % (AUTO) 60 % (42-75); PLATELET COUNT 258 10^3/uL (130-400); WHITE BLOOD COUNT 6.3 10^3/uL (4.3-11.0)
[2020-09-18 13:50] LABS: ALANINE AMINOTRANSFERASE 54 U/L (0-55); ALBUMIN 3.8 GM/DL (3.2-4.5); ALKALINE PHOSPHATASE 156 U/L (40-136); BILIRUBIN,TOTAL 0.3 MG/DL (0.1-1.0); BUN/CREATININE RATIO 15; CALCIUM 9.3 MG/DL (8.5-10.1); CARBON DIOXIDE 24 MMOL/L (21-32); CHLORIDE 107 MMOL/L (98-107); CREATININE SERUM 0.73 MG/DL (0.60-1.30); GFR ESTIMATED > 60; GLUCOSE 98 MG/DL (70-105); POTASSIUM 3.9 MMOL/L (3.6-5.0); SODIUM 141 MMOL/L (135-145); TOTAL PROTEIN 6.8 GM/DL (6.4-8.2)
[2020-10-02 09:01] LABS: BASOPHILS # (AUTO) 0.1 10^3/uL (0.0-0.1); BASOPHILS % (AUTO) 2 % (0-10); EOSINOPHILS # (AUTO) 0.2 10^3/uL (0.0-0.3); EOSINOPHILS % (AUTO) 6 % (0-10); HEMATOCRIT 39 % (35-52); HEMOGLOBIN 12.3 g/dL (11.5-16.0); LYMPHOCYTES # (AUTO) 1.1 10^3/uL (1.0-4.0); LYMPHOCYTES % (AUTO) 26 % (12-44); MEAN CORPUSCULAR HEMOGLOBIN 31 pg (25-34); MEAN CORPUSCULAR HGB CONC 32 g/dL (32-36); MEAN CORPUSCULAR VOLUME 96 fL (80-99); MEAN PLATELET VOLUME 9.3 fL (9.0-12.2); MONOCYTES # (AUTO) 0.5 10^3/uL (0.0-1.0); MONOCYTES % (AUTO) 12 % (0-12); NEUTROPHILS # (AUTO) 2.3 10^3/uL (1.8-7.8); NEUTROPHILS % (AUTO) 55 % (42-75); PLATELET COUNT 232 10^3/uL (130-400); WHITE BLOOD COUNT 4.3 10^3/uL (4.3-11.0)
[2020-10-02 09:19] LABS: ALANINE AMINOTRANSFERASE 69 U/L (0-55); ALBUMIN 3.7 GM/DL (3.2-4.5); ALKALINE PHOSPHATASE 144 U/L (40-136); BILIRUBIN,TOTAL 0.3 MG/DL (0.1-1.0); BUN/CREATININE RATIO 13; CALCIUM 9.1 MG/DL (8.5-10.1); CARBON DIOXIDE 25 MMOL/L (21-32); CHLORIDE 109 MMOL/L (98-107); CREATININE SERUM 0.76 MG/DL (0.60-1.30); GFR ESTIMATED > 60; GLUCOSE 78 MG/DL (70-105); POTASSIUM 3.8 MMOL/L (3.6-5.0); SODIUM 143 MMOL/L (135-145); TOTAL PROTEIN 6.4 GM/DL (6.4-8.2)
[2020-10-08 09:11] LABS: BASOPHILS % (AUTO) 1 % (0-10); EOSINOPHILS # (AUTO) 0.2 10^3/uL (0.0-0.3); EOSINOPHILS % (AUTO) 5 % (0-10); HEMATOCRIT 40 % (35-52); HEMOGLOBIN 12.7 g/dL (11.5-16.0); LYMPHOCYTES # (AUTO) 0.8 10^3/uL (1.0-4.0); LYMPHOCYTES % (AUTO) 24 % (12-44); MEAN CORPUSCULAR HEMOGLOBIN 31 pg (25-34); MEAN CORPUSCULAR HGB CONC 32 g/dL (32-36); MEAN CORPUSCULAR VOLUME 95 fL (80-99); MONOCYTES # (AUTO) 0.5 10^3/uL (0.0-1.0); MONOCYTES % (AUTO) 13 % (0-12); NEUTROPHILS % (AUTO) 57 % (42-75); PLATELET COUNT 214 10^3/uL (130-400); WHITE BLOOD COUNT 3.5 10^3/uL (4.3-11.0)
[2020-10-08 09:35] LABS: BUN/CREATININE RATIO 17; CALCIUM 9.2 MG/DL (8.5-10.1); CARBON DIOXIDE 25 MMOL/L (21-32); CHLORIDE 107 MMOL/L (98-107); CREATININE SERUM 0.75 MG/DL (0.60-1.30); GFR ESTIMATED > 60; GLUCOSE 92 MG/DL (70-105); MAGNESIUM 1.9 MG/DL (1.6-2.4); POTASSIUM 3.9 MMOL/L (3.6-5.0); SODIUM 141 MMOL/L (135-145)
[2020-10-16 14:10] LABS: BASOPHILS % (AUTO) 1 % (0-10); EOSINOPHILS # (AUTO) 0.3 10^3/uL (0.0-0.3); EOSINOPHILS % (AUTO) 7 % (0-10); HEMATOCRIT 38 % (35-52); HEMOGLOBIN 12.2 g/dL (11.5-16.0); LYMPHOCYTES # (AUTO) 0.8 10^3/uL (1.0-4.0); LYMPHOCYTES % (AUTO) 18 % (12-44); MEAN CORPUSCULAR HEMOGLOBIN 31 pg (25-34); MEAN CORPUSCULAR HGB CONC 32 g/dL (32-36); MEAN CORPUSCULAR VOLUME 97 fL (80-99); MEAN PLATELET VOLUME 9.2 fL (9.0-12.2); MONOCYTES # (AUTO) 0.5 10^3/uL (0.0-1.0); MONOCYTES % (AUTO) 12 % (0-12); NEUTROPHILS # (AUTO) 2.6 10^3/uL (1.8-7.8); NEUTROPHILS % (AUTO) 62 % (42-75); PLATELET COUNT 184 10^3/uL (130-400); WHITE BLOOD COUNT 4.2 10^3/uL (4.3-11.0)
[2020-10-16 14:25] LABS: ALANINE AMINOTRANSFERASE 32 U/L (0-55); ALBUMIN 3.7 GM/DL (3.2-4.5); ALKALINE PHOSPHATASE 110 U/L (40-136); BILIRUBIN,TOTAL 0.4 MG/DL (0.1-1.0); BUN/CREATININE RATIO 16; CALCIUM 9.2 MG/DL (8.5-10.1); CARBON DIOXIDE 27 MMOL/L (21-32); CHLORIDE 108 MMOL/L (98-107); CREATININE SERUM 0.75 MG/DL (0.60-1.30); GFR ESTIMATED > 60; GLUCOSE 102 MG/DL (70-105); MAGNESIUM 1.9 MG/DL (1.6-2.4); POTASSIUM 3.6 MMOL/L (3.6-5.0); SODIUM 142 MMOL/L (135-145); TOTAL PROTEIN 6.3 GM/DL (6.4-8.2)
[2020-10-23 13:42] LABS: BASOPHILS % (AUTO) 1 % (0-10); EOSINOPHILS # (AUTO) 0.3 10^3/uL (0.0-0.3); EOSINOPHILS % (AUTO) 5 % (0-10); HEMATOCRIT 36 % (35-52); HEMOGLOBIN 11.8 g/dL (11.5-16.0); LYMPHOCYTES # (AUTO) 0.6 10^3/uL (1.0-4.0); LYMPHOCYTES % (AUTO) 10 % (12-44); MEAN CORPUSCULAR HEMOGLOBIN 31 pg (25-34); MEAN CORPUSCULAR HGB CONC 33 g/dL (32-36); MEAN CORPUSCULAR VOLUME 95 fL (80-99); MEAN PLATELET VOLUME 8.8 fL (9.0-12.2); MONOCYTES # (AUTO) 0.7 10^3/uL (0.0-1.0); MONOCYTES % (AUTO) 12 % (0-12); NEUTROPHILS # (AUTO) 4.4 10^3/uL (1.8-7.8); NEUTROPHILS % (AUTO) 73 % (42-75); PLATELET COUNT 179 10^3/uL (130-400)
[2020-10-23 14:02] LABS: BUN/CREATININE RATIO 15; CALCIUM 9.2 MG/DL (8.5-10.1); CARBON DIOXIDE 24 MMOL/L (21-32); CHLORIDE 109 MMOL/L (98-107); CREATININE SERUM 0.73 MG/DL (0.60-1.30); GFR ESTIMATED > 60; GLUCOSE 109 MG/DL (70-105); POTASSIUM 3.9 MMOL/L (3.6-5.0); SODIUM 142 MMOL/L (135-145)
[2020-10-29 11:12] LABS: BASOPHILS % (AUTO) 1 % (0-10); EOSINOPHILS # (AUTO) 0.3 10^3/uL (0.0-0.3); EOSINOPHILS % (AUTO) 5 % (0-10); HEMATOCRIT 37 % (35-52); LYMPHOCYTES # (AUTO) 0.5 10^3/uL (1.0-4.0); LYMPHOCYTES % (AUTO) 10 % (12-44); MEAN CORPUSCULAR HEMOGLOBIN 31 pg (25-34); MEAN CORPUSCULAR HGB CONC 33 g/dL (32-36); MEAN CORPUSCULAR VOLUME 96 fL (80-99); MEAN PLATELET VOLUME 8.4 fL (9.0-12.2); MONOCYTES # (AUTO) 0.7 10^3/uL (0.0-1.0); MONOCYTES % (AUTO) 13 % (0-12); NEUTROPHILS # (AUTO) 3.7 10^3/uL (1.8-7.8); NEUTROPHILS % (AUTO) 71 % (42-75); PLATELET COUNT 195 10^3/uL (130-400); WHITE BLOOD COUNT 5.2 10^3/uL (4.3-11.0)
[2020-10-29 11:41] LABS: BUN/CREATININE RATIO 11; CALCIUM 8.9 MG/DL (8.5-10.1); CARBON DIOXIDE 25 MMOL/L (21-32); CHLORIDE 108 MMOL/L (98-107); CREATININE SERUM 0.71 MG/DL (0.60-1.30); GFR ESTIMATED > 60; GLUCOSE 93 MG/DL (70-105); POTASSIUM 3.8 MMOL/L (3.6-5.0); SODIUM 142 MMOL/L (135-145)
[~2020-11-05] MED LIST changes: +BEVACIZUMAB BVZR IV SCH; +CHOL-34 PO; -CHOL10002 PO; -FILGRASTIM 480 MCG/1.6 ML VIAL CANCER CENTER SQ SCH; -LEUCOVORIN CALCIUM 500 MG, LEUCOVORIN CALCIUM 100 MG in D5W 250 ML IVPB (CANCER CTR) 25... IV SCH; -NS IV 1000 ML (CANCER CTR) 1,000 ML ONE
[2020-11-05 14:23] LABS: BASOPHILS % (AUTO) 1 % (0-10); EOSINOPHILS # (AUTO) 0.3 10^3/uL (0.0-0.3); EOSINOPHILS % (AUTO) 5 % (0-10); HEMATOCRIT 36 % (35-52); HEMOGLOBIN 11.7 g/dL (11.5-16.0); LYMPHOCYTES # (AUTO) 0.5 X 10^3 (1.0-4.0); LYMPHOCYTES % (AUTO) 9 % (12-44); MEAN CORPUSCULAR HEMOGLOBIN 32 pg (25-34); MEAN CORPUSCULAR HGB CONC 33 g/dL (32-36); MEAN CORPUSCULAR VOLUME 97 fL (80-99); MEAN PLATELET VOLUME 8.6 fL (9.0-12.2); MONOCYTES # (AUTO) 0.6 X 10^3 (0.0-1.0); MONOCYTES % (AUTO) 11 % (0-12); NEUTROPHILS % (AUTO) 74 % (42-75); PLATELET COUNT 199 10^3/uL (130-400); WHITE BLOOD COUNT 5.3 10^3/uL (4.3-11.0)
[2020-11-05 14:40] LABS: ALANINE AMINOTRANSFERASE 24 U/L (0-55); ALBUMIN 3.7 GM/DL (3.2-4.5); ALKALINE PHOSPHATASE 92 U/L (40-136); BILIRUBIN,TOTAL 0.6 MG/DL (0.1-1.0); BUN/CREATININE RATIO 12; CALCIUM 9.1 MG/DL (8.5-10.1); CARBON DIOXIDE 28 MMOL/L (21-32); CHLORIDE 107 MMOL/L (98-107); CREATININE SERUM 0.76 MG/DL (0.60-1.30); GFR ESTIMATED > 60; GLUCOSE 117 MG/DL (70-105); POTASSIUM 3.7 MMOL/L (3.6-5.0); SODIUM 141 MMOL/L (135-145); TOTAL PROTEIN 6.2 GM/DL (6.4-8.2)
== END | disposition home or self-care (01) ==
LOC: ONC 08-07 09:01
PROVIDERS: ATTEND Internal Medicine Hematology & Oncology
DX: Z51.11 Encounter for antineoplastic chemotherapy (principal); C20 Malignant neoplasm of rectum; C22.9 Malignant neoplasm of liver, not specified as primary or secondary; C78.6 Secondary malignant neoplasm of retroperitoneum and peritoneum; R91.8 Other nonspecific abnormal finding of lung field; Z93.3 Colostomy status; Z98.890 Other specified postprocedural states
CPT/HCPCS: 80053; 83735; 85025; 96375; 96411; 96413; G0463; 36591; 77300; 77301; 77334; 77336; 77338; 77385; 77386; 77470; 80048; 82378; 96367; 96415; 96523; 99204; 99213; 99214; 99215

== ENCOUNTER 2020-11-09 09:10 | Outpatient (RCR) | payer MEDICARE ==
[~2020-11-09 09:10] MED LIST changes: -ATROPINE INJ 0.4 MG/ML SDV (CANCER CENTER) IV SCH; -BEVACIZUMAB AWWB IV SCH; -BEVACIZUMAB BVZR IV SCH; -FOSAPREPITANT (CANCER CENTER) 150 MG in NS (IVPB) CANCER CENTER ONLY 150 ML IV SCH; -IRINOTECAN HCL 200 MG, IRINOTECAN HCL 50 MG in D5W 250 ML IVPB (CANCER CTR) 250 ML IV SCH; -NS IV 1000 ML (CANCER CTR) 1,000 ML IV SCH; -NS IV SCH
== END 2021-02-04 | disposition home or self-care (01) ==
LOC: ONC 09:10
PROVIDERS: ATTEND Internal Medicine Hematology & Oncology
DX: C20 Malignant neoplasm of rectum (principal); C22.9 Malignant neoplasm of liver, not specified as primary or secondary; C78.6 Secondary malignant neoplasm of retroperitoneum and peritoneum; E87.6 Hypokalemia; N85.8 Other specified noninflammatory disorders of uterus; Z93.3 Colostomy status; Z79.899 Other long term (current) drug therapy; Z98.890 Other specified postprocedural states; Z92.21 Personal history of antineoplastic chemotherapy; Z80.1 Family history of malignant neoplasm of trachea, bronchus and lung
CPT/HCPCS: 77336; 77386